=== PATIENT | female | born 1940 | race Caucasian/White ===

== ENCOUNTER 2017-06-21 11:00 | Inpatient (IN) | payer MEDICARE ==
--- NOTE | 2017-06-21 12:29 | RAD ---
Indication: Dementia, fall with head injury and headaches. CT of the brain was performed without IV contrast. Intratesticular structures are midline. No midline shift is noted. Central and cortical atrophy is noted. There is no evidence of mass or hemorrhage. No other high or low density lesions are noted. Mastoid air cells and paranasal sinuses are otherwise unremarkable. IMPRESSION: No intracranial mass or hemorrhage is noted.
--- NOTE | 2017-06-21 12:30 | RAD ---
Clinical injury. 3 views of the right ankle are reviewed. Transverse avulsion of the medial malleolus, spiral fracture of the distal fibula and impacted fracture of the posterior malleolus is noted. This is consistent with a trimalleolar fracture. There appears to be lateral subluxation of the talus. IMPRESSION: Trimalleolar fracture with lateral subluxation of the talus.
[2017-06-21 12:41] LABS: Hematocrit 37 % (35-47); Hemoglobin 12.4 g/dl (12.0-16.0); Mean Corpuscular HGB Conc 33 g/dl (31-36); Mean Corpuscular Hemoglobin 30 pg (27-31); Mean Corpuscular Volume 90 fL (80-97); Mean Platelet Volume 9 um3 (7.4-10.4); Red Blood Count 4.13 10^6/ul (4.0-5.4); Red Cell Distribution Width 13 % (10.5-15); White Blood Count 12.3 10^3/ul (3.5-10.8)
[2017-06-21 12:58] LABS: Albumin 3.3 g/dL (3.2-5.2); BUN/Creatinine Ratio 18.9 (8-20); Calcium 10.4 mg/dL (8.6-10.3); EGFR African American 50.5 (>60); EGFR Non-African American 39.2 (>60); Globulin 3.4 g/dL (2-4); Potassium 4.6 mmol/L (3.5-5.0); Total Bilirubin 0.4 mg/dL (0.2-1.0); Total Protein 6.7 g/dL (6.4-8.9)
[2017-06-21 12:59] LABS: Troponin I 0.01 ng/mL (<0.04)
[2017-06-21 13:26] LABS: TSH (Thyroid Stimulating Horm) 4.98 mcIU/mL (0.34-5.60)
[2017-06-21] MEDS ORDERED: NS 0.9% 1000 ML* 1,000 ML IV ONE (13:51)
[2017-06-21] MEDS ORDERED: Morphine INJ* 2 MG/ML 1 ML CARPUJECT IV ONE (16:09)
[2017-06-21] MEDS ORDERED: Morphine INJ* 2 MG/ML 1 ML SYRINGE (TWO MG - NEW SYRINGE VERSION) ONE (16:11)
--- NOTE | 2017-06-21 17:45 | ED ---
Lani Holden Edward, scribed for Geovanni Vega MD on 06/21/17 at 1147 . Adult Trauma - HPI Summary HPI Summary: 77 y/o female ELIDA c/o immediate onset R ankle pain s/p fall in the shower earlier today. The ankle pain is aggravated by touch. Pt was holding on to the bar in the shower and slowly started falling down. Her feet slipped out from under and hit her R foot on the shower wall. Pt also hit her head on a bench behind her during the fall. Witnessed LOC. Associated sx: abrasions at the back of her head. PMHx dementia. Information provided by the pt's aide. Pt living at [facility] in memory unit. 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 Mechanism of Injury: Fall Loss of Consciousness: brief (seconds) Onset/Duration: Started Hours Ago Onset of Pain: Immediate Location: Extremities - R ankle Associated Signs & Symptoms: Positive: Loss of Consciousness, Other: - Abrasions at back of head - Allergy/Home Medications Allergies/Adverse Reactions: Allergies Allergy/AdvReac Type Severity Reaction Status Date / Time No Known Allergies Allergy Verified 06/21/17 11:35 PMH/Surg Hx/FS Hx/Imm Hx Previously Healthy: No Cardiovascular History: Reports: Hx Hypertension Neurological History: Reports: Hx Dementia - Alzheimer's - Surgical History Surgery Procedure, Year, and Place: Hysterectomy (~3 years ago) Infectious Disease History: Denies: Traveled Outside the [place] in Last 30 Days - Family History Known Family History: Positive: Cardiac Disease - Father - when the pt was 10, Other - Niece - breast CA - Social History Occupation: Retired Lives: Assisted Living - [facility] unit Alcohol Use: None Hx Substance Use: No Substance Use Type: Reports: None Hx Tobacco Use: No Smoking Status (MU): Never Smoked Tobacco Review of Systems Constitutional: Negative Eyes: Negative ENT: Negative Cardiovascular: Negative Respiratory: Negative Gastrointestinal: Negative Genitourinary: Negative Positive: Arthralgia - R ankle pain Skin: Other - Abrasions at the back of the head Neurological: Other - LOC during fall Psychological: Normal All Other Systems Reviewed And Are Negative: Yes Physical Exam Triage Information Reviewed: Yes Vital Signs On Initial Exam: Initial Vitals Temp Pulse Resp BP Pulse Ox 97.7 F 56 16 87/44 97 06/21/17 11:31 06/21/17 11:31 06/21/17 11:31 06/21/17 11:31 06/21/17 11:31 Vital Signs Reviewed: Yes Appearance: Positive: Well-Appearing, No Pain Distress Skin: Positive: Warm, Skin Color Reflects Adequate Perfusion, Dry Head/Face: Positive: Normal Head/Face Inspection Eyes: Positive: Normal ENT: Positive: Normal ENT inspection Neck: Positive: Supple, Nontender Respiratory/Lung Sounds: Positive: Clear to Auscultation, Breath Sounds Present Cardiovascular: Positive: RRR Abdomen Description: Positive: Nontender, Soft Bowel Sounds: Positive: Present Musculoskeletal: Positive: Pain @ - Tender to touch @ R ankle Neurological: Positive: Other - Confused Psychiatric: Positive: Normal, Affect/Mood Appropriate Procedures - Splinting Hand-Made Type: orthoglass Splint: posterior Pre-Proc Neuro Vasc Exam: normal Post-Proc Neuro Vasc Exam: normal Diagnostics - Vital Signs Vital Signs Temp Pulse Resp BP Pulse Ox 06/21/17 15:00 71 13 128/44 94 06/21/17 14:06 12 137/70 06/21/17 14:00 16 06/21/17 13:30 58 15 78/48 95 06/21/17 13:00 56 20 128/65 97 06/21/17 12:30 56 16 114/67 96 06/21/17 12:20 53 15 99 06/21/17 12:18 88/56 06/21/17 11:59 53 15 90 06/21/17 11:32 54 12 93 06/21/17 11:31 97.7 F 56 16 87/44 97 - Laboratory Lab Results: Lab Results 06/21/17 06/21/17 06/21/17 Range/Units 12:25 12:25 12:25 WBC 12.3 H (3.5-10.8) 10^3/ul RBC 4.13 (4.0-5.4) 10^6/ul Hgb 12.4 (12.0-16.0) g/dl Hct 37 (35-47) % MCV 90 (80-97) fL MCH 30 (27-31) pg MCHC 33 (31-36) g/dl RDW 13 (10.5-15) % Plt Count 252 (150-450) 10^3/ul MPV 9 (7.4-10.4) um3 Neut % (Auto) 79.2 (38-83) % Lymph % (Auto) 9.9 L (25-47) % [place] % (Auto) 9.8 H (1-9) % Eos % (Auto) 0.9 (0-6) % Baso % (Auto) 0.2 (0-2) % Absolute Neuts (auto) 9.7 H (1.5-7.7) 10^3/ul Absolute Lymphs (auto) 1.2 (1.0-4.8) 10^3/ul Absolute Monos (auto) 1.2 H (0-0.8) 10^3/ul Absolute Eos (auto) 0.1 (0-0.6) 10^3/ul Absolute Basos (auto) 0 (0-0.2) 10^3/ul Absolute Nucleated RBC 0 10^3/ul Nucleated RBC % 0 Sodium 132 L (133-145) mmol/L Potassium 4.6 (3.5-5.0) mmol/L Chloride 101 (101-111) mmol/L Carbon Dioxide 29 (22-32) mmol/L Anion Gap 2 (2-11) mmol/L BUN 25 H (6-24) mg/dL Creatinine 1.32 H (0.51-0.95) mg/dL Est GFR ( Amer) 50.5 (>60) Est GFR (Non-Af Amer) 39.2 (>60) BUN/Creatinine Ratio 18.9 (8-20) Glucose 101 H (70-100) mg/dL Lactic Acid 1.1 (0.5-2.0) mmol/L Calcium 10.4 H (8.6-10.3) mg/dL Magnesium 2.0 (1.9-2.7) mg/dL Total Bilirubin 0.40 (0.2-1.0) mg/dL AST 17 (13-39) U/L ALT 14 (7-52) U/L Alkaline Phosphatase 94 (34-104) U/L Troponin I 0.01 (<0.04) ng/mL Total Protein 6.7 (6.4-8.9) g/dL Albumin 3.3 (3.2-5.2) g/dL Globulin 3.4 (2-4) g/dL Albumin/Globulin Ratio 1.0 (1-3) TSH 4.98 (0.34-5.60) mcIU/mL Result Diagrams: 06/21/17 12:25 06/21/17 12:25 Lab Statement: Any lab studies that have been ordered have been reviewed, and results considered in the medical decision making process. - Radiology ANKLE XR Xray Interpretation: No Acute Changes - Trimalleolar fracture with lateral subluxation of the talus. ED PHYSICIAN AGREES Radiology Interpretation Completed By: Radiologist - CT BRAIN CT CT Interpretation: No Acute Changes - No intracranial mass or hemorrhage is noted. ED PHYSICIAN AGREES - EKG 1 EKG Rhythm: Sinus Bradycardia - @ 56 BPM EKG Interpretation: 12:48 Re-Evaluation - Re-Evaluation 1 Re-Evaluation Time: 14:37 Adult Trauma Course/Dx - Course Course Of Treatment: Ms. Alfonso had a likely vagal episode in the shower today and sustained a trimalleollar fracture of her right ankle. She is being admitted to the hospitalist with an ortho consult. Assessment/Plan: Discussed with Dr. Puentes @ 15:00 who accepted the patient for admission. - Diagnoses Provider Diagnoses: Syncope and collapse, Trimalleolar fracture of right ankle - Physician Notifications Discussed Care Of Patient With: Sanket Skaggs Time Discussed With Above Provider: 14:44 Discharge - Discharge Plan Condition: Stable Disposition: ADMITTED TO [facility] documentation as recorded by the Lani mac Edward accurately reflects the service I personally performed and the decisions made by Gary delarosa Richard L, MD.
[2017-06-21] MEDS: cefTRIAXone VIAL(*) 1,000 MG in NS 0.9% 50 ML* 50 ML IVPB SCH (17:52)
[2017-06-21] MEDS: NS 0.9% 1000 ML* 1,000 ML IV SCH (17:52)
[2017-06-21] MEDS: Acetaminophen TAB* 325 MG PO SCH ×2 (18:09→23:49)
[2017-06-21] MEDS: Morphine INJ* 2 MG/ML 1 ML SYRINGE (TWO MG - NEW SYRINGE VERSION) IV PRN (19:46)
--- NOTE | 2017-06-21 19:52 | PN ---
Progress Note - Progress Note Date of Service: 06/21/17 Note: Full note dictated. R trimalleolar ankle fracture. The medial skin looks okay. She has already been splinted in the emergency department and is in quite a bit of pain so I left her in that splint but removed the maría bandage to loosen the splint enough to examine her. I have spoken with Dr. Gerard. We will plan for ORIF on Friday. Please make her npo at midnight on Friday night. She is okay to eat tomorrow.
--- NOTE | 2017-06-21 21:52 | CONS ---
CONSULTATION REPORT: DATE OF CONSULTATION: 06/21/17 CHIEF COMPLAINT: Right ankle fracture. HISTORY OF PRESENT ILLNESS: Lacey is a 77-year-old female who has Alzheimer's disease and lives at a care facility here in [facility]. The history if taken from the chart as she has nobody with her today in her room and I cannot get hold of anybody on the phone and so history today is taken here from notes available to me. She had a fall in the shower. She has right ankle pain. X-rays showed a displaced fracture of the right ankle. PAST MEDICAL HISTORY: Include hypertension and Alzheimer's disease that is fairly severe and for which she has full-time care at [facility]. PAST SURGICAL HISTORY: Hysterectomy roughly 3 years ago. FAMILY HISTORY: Noncontributory. SOCIAL HISTORY: She does not smoke. She has never smoked. She lives at [facility] in the Memory Unit given her Alzheimer's disease. REVIEW OF SYSTEMS: Not obtainable given the patient's inability to have a conversation. PHYSICAL EXAMINATION: Awake and responsive. Does not respond to questions appropriately. She is in mild distress. Musculoskeletal: I conducted a full secondary survey. There is no deformity or areas of tenderness anywhere other than right ankle, which is splinted. I removed the Dimas bandage and peeked into the splint. There is no tinting of the skin. The skin on the medial side does not look overly tight. There is just mild swelling. She is wiggling the toes distally. Foot is warm and well perfused. Otherwise, the extremities have reasonable alignment and are moving well. The pelvis is stable. The log roll of the hip is without pain on the left and not performed well due to the ankle fracture on the right. LABORATORY DATA/DIAGNOSTIC STUDIES: Her white count is 12.3, H and H is 12.4 and 37, platelets are 252. Creatinine is 1.32. The rest of her chemistries are unremarkable. Lactic acid is 1.1. Imaging: X-rays of the right ankle show trimalleolar fracture that is subluxated laterally. IMPRESSION: Displaced right trimalleolar ankle fracture. PLAN: I have attempted to reach out to the two people who are listed in the chart, Ania Villalpando who is her medical decision maker, and her brother, Jose Alfonso. I left voice mails on both numbers. I left them my phone number, I will try to get in touch with them. Ultimately, I would plan on treating this operatively as the ankle will do quite poorly without surgical intervention and she does walk at baseline. There is certainly some subluxation of the talus with respect to the plafond but I looked into medial soft tissue and it looks, I guess, not under excessive tension and it gets fine for now. I have spoken to Dr. Gerard. She will get medically cleared and we will plan for surgery Friday. [id number]/[facility] #: [id number] MTDD
--- NOTE | 2017-06-21 22:25 | HP ---
CC: Dr. Karimi* HISTORY AND PHYSICAL: DATE OF ADMISSION: 06/21/17 PRIMARY CARE PROVIDER: Dr. Justyna Karimi. ATTENDING PHYSICIAN: Dr. Liz Kaur *(dictated by Millicent Huerta NP). CHIEF COMPLAINT: Fall over a shower, hit head and right leg pain and swelling. HISTORY OF PRESENT ILLNESS: Ms. Alfonso is a 77-year-old female with past medical history significant for Alzheimer's disease, dementia, glaucoma, depression, constipation, hyperparathyroidism, hypertension and uterine cancer who is a resident at [facility], who presented to the emergency room after losing her footing and falling in the shower, hitting her head. The patient has significant dementia and most of the medical history is obtained from the medical records from [facility] and the niece Kristie Villalpando. There was an aide from the facility with her at that time, but it is unclear whether or not the patient lost consciousness or not. After falling, the patient was complaining of right lower extremity pain and there was noted to be swelling. The patient is unable to give a review of systems due to her dementia , but her niece at bedside states that she has not had any recent complaints. The patient was brought to the emergency room by EMS for evaluation. While in the emergency room, the patient had labs that were remarkable for sodium of 132, BUN 25, creatinine 132, white blood cell count of 12.3. The patient had a brain CT showing no intracranial mass or hemorrhage. She had a right ankle x-ray showing a trimalleolar fracture with lateral subluxation of the talus. Hospitalists were asked to evaluate the patient for admission. PAST MEDICAL HISTORY: 1. Alzheimer's disease. 2. Glaucoma. 3. Depression. 4. Constipation. 5. Dementia. 6. Hyperparathyroidism. 7. Hypertension. 8. Uterine cancer. PAST SURGICAL HISTORY: 1. Status post total hysterectomy in 2013. 2. Status post tonsillectomy as a child. HOME MEDICATIONS: Include: 1. Senna S 8.6/50 one tablet oral daily at bedtime. 2. Vitamin D3 50,000 units oral weekly on Friday. 3. Zoloft 25 mg oral daily. 4. MiraLAX 17 g oral daily on Friday, Friday, and Friday. 5. Lumigan 0.01% one drop to both eyes daily at bedtime. 6. Lisinopril 20 mg oral daily. 7. Aricept 10 mg oral daily at bedtime. 8. Acetaminophen 650 mg oral every 4 hours as needed for fever or pain. 9. Simbrinza ophthalmic solution 1 drop to both eyes twice daily. 10. Namenda 10 mg oral twice daily. 11. Timolol 0.5% ophthalmic solution 1 drop to both eyes twice daily. ALLERGIES: No known drug allergies. FAMILY HISTORY: The patient's father passed in his 50s from myocardial infarction. The patient's mother had a history of type 2 diabetes. The patient has a niece with a history of breast cancer. SOCIAL HISTORY: The patient denied tobacco, alcohol, or recreational drug use. The patient's niece, Kristie Villalpando, will be her surrogate decision maker in the event she is unable to make decisions for herself. Kristie Mcknight can be reached at [phone]. REVIEW OF SYSTEMS: I was unable to perform a review of systems due to the patient's dementia; but according to the patient's niece, she has not had any complaints recently. PHYSICAL EXAMINATION GENERAL: The patient is alert, pleasant and appears to be in no acute distress. VITAL SIGNS: Temperature 97.6, heart rate 59, respiratory rate 20, O2 sat 92% on room air, blood pressure 136/64. HEENT: Normocephalic, atraumatic. Pupils are equal and reactive to light. Extraocular eye movements are intact. RESPIRATORY: There is no accessory muscle use. Lungs are clear to auscultation , bilateral. CARDIOVASCULAR: Regular rate and rhythm. S1 and S2 present. There are no murmurs, rubs, or gallops heard. ABDOMEN: Soft, nontender, and nondistended. There are bowel sounds present x4. EXTREMITIES: DP pulses are 2+ and symmetric bilateral. MUSCULOSKELETAL: There is no clubbing or cyanosis noted. The patient exhibits good strength in all extremities. NEUROLOGICAL: The patient is alert and oriented to person. Cranial nerves II through XII are grossly intact. PSYCHOLOGICAL: The patient is calm and cooperative. SKIN: There are no rashes or abnormalities seen. The patient does have a splint to her right lower extremity. It is clean, dry and intact. DIAGNOSTIC STUDIES/LABORATORY DATA: Sodium 132, potassium 4.6, chloride 101, CO2 29, BUN 25, creatinine 1.32, glucose 101. Calcium 10.4, troponin 0.01. White blood cell count 12.3, hemoglobin 12.4, hematocrit 37 and platelet count 252. EKG shows sinus bradycardia with a rate of 56. There are no acute signs of ischemia noted. There are no previous EKGs for comparison. Brain CT from today. Radiologist impression: No intracranial mass or hemorrhage. Right ankle x-ray from today. Radiologist impression: Trimalleolar fracture with lateral subluxation of talus. IMPRESSION: Ms. Alfonso is a 77-year-old female with past medical history significant for Alzheimer's disease, glaucoma, depression, constipation, hypertension and history of uterine cancer who presents to the emergency room from [facility] where she resides after losing her footing and falling in the shower resulting in a right trimalleolar fracture. She will be admitted as an inpatient for syncope and her right trimalleolar fracture. ASSESSMENT AND PLAN: 1. Syncope. It is unclear whether or not the patient had loss of consciousness with her fall. She had a negative brain CT while in the emergency room. We will monitor her on telemetry and check an echocardiogram in the morning. 2. Right trimalleolar fracture. Dr. Skaggs with Orthopedic Surgery will see the patient tomorrow. For now, we will place her on bedrest as I do not believe that she would be able to get up and follow directions to be nonweightbearing on the extremity. We will give her pain medications. I am going to give her standing Tylenol with the attempt to limit her narcotics to try to prevent delirium while she is here. 3. Urinary tract infection. The patient has leukocytosis. She is currently afebrile. She had a urinalysis sent on June 29. It was positive for an E. coli urinary tract infection. We will check blood cultures. She was not started on antibiotics yet at the [facility]. I will start her on IV ceftriaxone. 4. Elevated acute kidney injury. It appears the patient may have an acute kidney injury I suspect secondary to dehydration, although I do not have baseline labs to compare to. We will give the patient IV hydration overnight and recheck her labs again in the morning. 5. Alzheimer's disease. The patient will be continued on her home Namenda and Aricept. 6. Glaucoma. The patient will be continued on her home eyedrops. 7. Constipation. We will continue the patient on her home bowel regimen of senna and MiraLAX. 8. Hypertension. We will continue the patient on her home lisinopril. If she continues to have signs of an acute kidney injury, we should discontinue this and change it to another agent. 9. Depression. The patient will be continued on her home Zoloft. 10. Fluids, electrolytes and nutrition. The patient will be on a regular diet. 11. Code status. Do not resuscitate/do not intubate. A MOLST has been completed with the nieceKristie, and placed in chart. 12. DVT prophylaxis. The patient is at highest risk and will have subcu heparin and we will place a SCD on her left lower extremity. 13. Disposition. Inpatient. TIME SPENT: Time for this admission was approximately 60 minutes, greater than half of that was spent with the patient and nieceKristie, discussing medications, past medical history, the events leading up to her arrival today and performing a physical examination. The case has been reviewed with the attending, Dr. Kaur, who agrees with the plan of care. MILLICENT HUERTA, MARIANN [id number]/[facility] #: [id number] PAULA
[2017-06-21] MEDS: BRIMONIDINE BOTH EYES SCH (22:34)
[2017-06-21] MEDS: BRINZOLAMIDE BOTH EYES SCH (22:34)
[2017-06-21] MEDS: Timolol 0.5% OPTH.SOL* BTL BOTH EYES SCH (22:40)
[2017-06-21] MEDS: Heparin VIAL(*) 5000 UNITS/ML VIAL (FIVE THOUSAND) SUBCUT SCH (22:40)
[2017-06-21] MEDS: Docusate LIQ* 100 MG/10 ML UDC PO SCH (22:40)
[2017-06-21] MEDS: Latanoprost 0.005%* 2.5 ml BTL BOTH EYES SCH (22:40)
[2017-06-21] MEDS: Senna TAB PO SCH (22:40)
[2017-06-21] MEDS: Memantine TAB* 10 MG PO SCH (22:40)
[2017-06-21] MEDS: Donepezil TAB* 5 MG PO SCH (22:40)
[2017-06-22] MEDS: Morphine INJ* 2 MG/ML 1 ML SYRINGE (TWO MG - NEW SYRINGE VERSION) IV PRN (01:10)
[2017-06-22] MEDS: Haloperidol INJ IV/IM* 5 MG/ML AMP IV SLOW PU PRN ×2 (02:57→19:29)
[2017-06-22] MEDS: Heparin VIAL(*) 5000 UNITS/ML VIAL (FIVE THOUSAND) SUBCUT SCH ×2 (05:01→13:51)
[2017-06-22] MEDS: Acetaminophen TAB* 325 MG PO SCH ×3 (05:01→19:30)
[2017-06-22 06:23] LABS: Hematocrit 36 % (35-47); Hemoglobin 12.1 g/dl (12.0-16.0); Mean Corpuscular HGB Conc 34 g/dl (31-36); Mean Corpuscular Hemoglobin 30 pg (27-31); Mean Corpuscular Volume 90 fL (80-97); Mean Platelet Volume 9 um3 (7.4-10.4); Red Blood Count 4.01 10^6/ul (4.0-5.4); Red Cell Distribution Width 13 % (10.5-15); White Blood Count 9.6 10^3/ul (3.5-10.8)
[2017-06-22 06:38] LABS: BUN/Creatinine Ratio 18.9 (8-20); Calcium 9.9 mg/dL (8.6-10.3); EGFR African American 73.8 (>60); EGFR Non-African American 57.3 (>60); Potassium 4.5 mmol/L (3.5-5.0)
[2017-06-22] MEDS: NS 0.9% 1000 ML* 1,000 ML IV SCH (08:09)
[2017-06-22] MEDS: Memantine TAB* 10 MG PO SCH ×2 (09:20→20:41)
[2017-06-22] MEDS: Sertraline* 25 MG TAB PO SCH (09:20)
[2017-06-22] MEDS: BRIMONIDINE BOTH EYES SCH ×2 (09:21→20:57)
[2017-06-22] MEDS: BRINZOLAMIDE BOTH EYES SCH ×2 (09:21→20:57)
[2017-06-22] MEDS: Timolol 0.5% OPTH.SOL* BTL BOTH EYES SCH ×2 (09:21→20:40)
[2017-06-22] MEDS: Lisinopril TAB* 10 MG PO SCH (10:55)
--- NOTE | 2017-06-22 11:28 | ECHO ---
Patient: CARYN CROOK [facility] Rec#: [id number] : 1940 Date: 06/22/2017 Age: 77y Height: 165.1 cm / 65.0 in Weight: 86.2 kg / 190.0 lbs Sex: F BSA: 1.9 Room#: 437 Admit Date#: 06/21/2017 Type: Inpatient Referring: Nicole Arrieta NP Reading: Meño Husain MD Student Records Specialist: Noemi Hirsch RN RDCS CC: Justyna Karimi MD Transthoracic Echocardiogram Indication: Syncope BP: 132/51 HR: 57 Rhythm: Bradycardia Findings History: Alzheimer's disease, HTN, hyperparathyroidism, uterine cancer Technical Comments: The study quality is fair. The study is technically limited due to patient body habitus. Completed at 1115. Left Ventricle: The left ventricular chamber size is normal. Septal wall hypertrophy is observed.c/w a sigmoid septum. Mild turbulence and mild increase in LVOT velocity without significant obstruction. There is increased basal septal hypertrophy noted without evidence of an increased gradient across the left ventricular outflow tract. Global left ventricular wall motion and contractility are within normal limits. The left ventricle appears hyperdynamic. The estimated ejection fraction is greater than 65%. The assessment of diastolic function is non-diagnostic. The patient was unable to perform a Valsalva maneuver. Left Atrium: The left atrial chamber size is normal. Right Ventricle: The right ventricular chamber size and systolic function are within normal limits. Right Atrium: The right atrial cavity size is normal. Aortic Valve: The aortic valve is trileaflet. The aortic valve leaflets are mildly thickened. There is no evidence of aortic regurgitation. There is no evidence of aortic stenosis. Mitral Valve: There is posterior mitral annular calcification. The mitral valve leaflets are mildly thickened. There is trace to mild mitral regurgitation. There is no evidence of mitral stenosis. Tricuspid Valve: The tricuspid valve leaflets are normal. There is moderate tricuspid regurgitation. There is evidence of mild pulmonary hypertension. There is no tricuspid stenosis. Pulmonic Valve: The pulmonic valve appears normal. There is mild pulmonic regurgitation. Pericardium: There is no significant pericardial effusion. A pericardial fat pad is visualized. Aorta: There is mild dilatation of the ascending aorta. There is no dilatation of the aortic arch. There is no dilation of the aortic root. Pulmonary Artery: The main pulmonary artery appears normal. Venous: The venous system is not well visualized. The inferior vena cava is not visualized. Summary: There was not any prior study for comparison. Conclusions There is increased basal septal hypertrophy noted without evidence of an increased gradient across the left ventricular outflow tract. The estimated ejection fraction is greater than 65%. There is trace to mild mitral regurgitation. There is moderate tricuspid regurgitation. There is evidence of mild pulmonary hypertension. There is mild pulmonic regurgitation. There is mild dilatation of the ascending aorta. Measurements Name Value Normal Range RVDdMajor (2D) 2.8 cm (2.2 - 4.4) RAd ISD 4CH 4 cm (3.4 - 4.9) RA (A4C)W 3 cm (2.9 - 4.6) IVSd (2D) 1.1 cm (0.6 - 1) LVPWd (2D) 1 cm (0.6 - 1) LVIDd (2D) 4.6 cm (3.6 - 5.4) LVIDs (2D) 3.1 cm - LV FS (2D) 31 % (25 - 45) Aortic Annulus 2 cm (1.4 - 2.6) Ao root diameter (2D) 3.2 cm (2.1 - 3.5) Ascending Ao 3.6 cm (2.1 - 3.4) Aortic arch 3 cm (1.8 - 3.4) LA dimension (AP) 2D 3 cm (2.3 - 3.8) LAd ISD 4CH 5 cm (2.9 - 5.3) LA ISD 4CH W 4 cm (2.5 - 4.5) Name Value Normal Range LA ESV SP 4CH (A/L) 49.5 ml - LA ESV SP 2CH (A/L) 72.7 ml - LA ESV BP (A/L) 62.3 ml - LA ESV BP (A/L) index 32.1 ml/m2 - LA ESV SP 4CH (MOD) 48.3 ml - LA ESV SP 2CH (MOD) 69.5 ml - Name Value Normal Range MV E-wave Vmax 0.92 m/sec - MV deceleration time 228 msec - MV A-wave Vmax 0.87 m/sec - MV E:A ratio 1 ratio - P. vein S-wave Vmax 0.71 m/sec - P. vein D-wave Vmax 0.46 m/sec - P. vein S:D Vmax ratio 1.5 ratio - P. vein A-wave duration 152 msec - LV septal e' Vmax 0.08 m/sec - LV lateral e' Vmax 0.1 m/sec - LV E:e' septal ratio 11.5 ratio - LV E:e' lateral ratio 9.2 ratio - Name Value Normal Range AV Vmax 1.6 m/sec - AV VTI 39.6 cm - AV peak gradient 10.2 mmHg - AV mean gradient 5.5 mmHg - LVOT Vmax 1.3 m/sec - LVOT VTI 34 cm - LVOT peak gradient 7.1 mmHg - LVOT mean gradient 3.7 mmHg - BRITANY Vmax 0.46 m/sec - Name Value Normal Range TR Vmax 3 m/sec - TR peak gradient 36 mmHg - RAP 8 mmHg - RVSP 44 mmHg - Name Value Normal Range PV Vmax 0.99 m/sec -
--- NOTE | 2017-06-22 14:15 | PN ---
Progress Note - Progress Note Date of Service: 06/22/17 SOAP: Subjective: Patient has severe dementia and is not oriented. Objective: 77 y/o WDWN F, NAD RLE- splint c/d/i, skin intact with no tenting or skin breakdown, NVI Vital Signs Temp Pulse Resp BP Pulse Ox 97.7 F 66 18 147/49 97 06/22/17 11:16 06/22/17 11:16 06/22/17 11:16 06/22/17 11:16 06/22/17 11:16 Laboratory Results - last 24 hr 06/22/17 06/22/17 06:12 06:12 WBC 9.6 RBC 4.01 Hgb 12.1 Hct 36 MCV 90 MCH 30 MCHC 34 RDW 13 Plt Count 227 MPV 9 Neut % (Auto) 77.5 Lymph % (Auto) 10.3 L [place] % (Auto) 9.8 H Eos % (Auto) 2.2 Baso % (Auto) 0.2 Absolute Neuts (auto) 7.4 Absolute Lymphs (auto) 1.0 Absolute Monos (auto) 0.9 H Absolute Eos (auto) 0.2 Absolute Basos (auto) 0 Absolute Nucleated RBC 0 Nucleated RBC % 0 Sodium 136 Potassium 4.5 Chloride 107 Carbon Dioxide 27 Anion Gap 2 BUN 18 Creatinine 0.95 Est GFR ( Amer) 73.8 Est GFR (Non-Af Amer) 57.3 BUN/Creatinine Ratio 18.9 Glucose 99 Calcium 9.9 Assessment: Right trimalleolar ankle fx Plan: To OR for Right ankle ORIF with Dr. Gerard on 06/23/17 Hold heparin NPO after midnight NWB RLE- keep splint intact hospitalist co-managing
--- NOTE | 2017-06-22 15:53 | PN ---
Subjective Date of Service: 06/22/17 Interval History: No events. She is reported to have occasionally yelled out overnight, but has been redirectable. She denies pain. A complete review of systems is unable to be completed due to advanced dementia. Family History: Unchanged from Admission Social History: Unchanged from Admission Past Medical History: Unchanged from Admission Objective Active Medications: Acetaminophen (Tylenol Tab*) 975 mg PO Q6HR [facility] Last Admin: 06/22/17 11:54 Dose: 975 mg Docusate Sodium (Colace Liq*) 50 mg PO BEDTIME [facility] Last Admin: 06/21/17 22:40 Dose: 50 mg Donepezil HCl (Aricept Tab*) 10 mg PO BEDTIME [facility] Last Admin: 06/21/17 22:40 Dose: 10 mg Haloperidol Lactate (Haldol Inj Iv/Im*) 2.5 mg IV SLOW PU Q6H PRN PRN Reason: AGITATION Last Admin: 06/22/17 02:57 Dose: 2.5 mg Ceftriaxone Sodium 1,000 mg/ (Sodium Chloride) 50 mls @ 200 mls/hr IVPB Q24H [facility] Last Admin: 06/21/17 17:52 Dose: 200 mls/hr Sodium Chloride (Ns 0.9% 1000 Ml*) 1,000 mls @ 75 mls/hr IV PER RATE [facility] Last Admin: 06/22/17 08:09 Dose: 75 mls/hr Latanoprost (Xalatan 0.005%*) 1 drop BOTH EYES BEDTIME [facility] PRN Reason: Protocol Last Admin: 06/21/17 22:40 Dose: 1 drop Lisinopril (Prinivil Tab*) 20 mg PO DAILY [facility] Last Admin: 06/22/17 10:55 Dose: Not Given Memantine (Namenda Tab*) 10 mg PO BID [facility] Last Admin: 06/22/17 09:20 Dose: 10 mg Morphine Sulfate (Morphine Inj (Syringe)*) 2 mg IV Q4H PRN PRN Reason: PAIN - SEVERE Last Admin: 06/22/17 01:10 Dose: 2 mg Pto: Simbrinza Oph. (Susp(Nf)) 1 drop BOTH EYES BID [facility] Last Admin: 06/22/17 09:21 Dose: Not Given Polyethylene Glycol/Electrolytes (Miralax*) 17 gm PO MoWeFr@0900 [facility] Senna (Senokot Tab*) 1 tab PO BEDTIME [facility] Last Admin: 06/21/17 22:40 Dose: 1 tab Sertraline HCl (Zoloft*) 25 mg PO DAILY [facility] Last Admin: 06/22/17 09:20 Dose: 25 mg Timolol Maleate (Timoptic 0.5% Opth*) 1 drop BOTH EYES BID [facility] Last Admin: 06/22/17 09:21 Dose: 1 drop Vital Signs 06/21/17 06/21/17 06/21/17 16:00 16:08 16:14 Temperature 97.6 F 97.6 F Pulse Rate 59 59 Respiratory 20 20 18 Rate Blood Pressure 136/64 136/64 (mmHg) O2 Sat by Pulse 92 92 Oximetry 06/21/17 06/21/17 06/21/17 17:14 19:30 19:46 Temperature 97.4 F Pulse Rate 63 Respiratory 18 17 19 Rate Blood Pressure 134/52 (mmHg) O2 Sat by Pulse 97 Oximetry 06/21/17 06/21/17 06/22/17 20:00 20:46 00:06 Temperature 98.0 F Pulse Rate 94 Respiratory 19 22 16 Rate Blood Pressure 130/58 (mmHg) O2 Sat by Pulse 95 Oximetry 06/22/17 06/22/17 06/22/17 01:10 02:10 04:59 Temperature 97.3 F Pulse Rate 64 Respiratory 20 22 16 Rate Blood Pressure 132/51 (mmHg) O2 Sat by Pulse 96 Oximetry 06/22/17 06/22/17 06/22/17 08:00 08:02 09:20 Temperature 97.9 F Pulse Rate 61 Respiratory 18 18 Rate Blood Pressure 120/38 110/60 (mmHg) O2 Sat by Pulse 94 Oximetry 06/22/17 11:16 Temperature 97.7 F Pulse Rate 66 Respiratory 18 Rate Blood Pressure 147/49 (mmHg) O2 Sat by Pulse 97 Oximetry Oxygen Devices in Use Now: None Appearance: alert, no distress, oriented only to person Eyes: No Scleral Icterus, PERRLA Ears/Nose/Mouth/Throat: NL Teeth, Lips, Gums, Clear Oropharnyx Neck: NL Appearance and Movements; NL JVP, Trachea Midline Respiratory: Symmetrical Chest Expansion and Respiratory Effort, Clear to Auscultation Cardiovascular: NL Sounds; No Murmurs; No JVD, RRR Abdominal: NL Sounds; No Tenderness; No Distention, No Hepatosplenomegaly Lymphatic: No Cervical Adenopathy Extremities: No Edema, - - R ankle splinted Skin: No Rash or Ulcers Neurological: - - poor attention, follows commands, answers questions nonsensibly Result Diagrams: 06/22/17 06:12 06/22/17 06:12 Additional Lab and Data: Lab Results 06/21/17 06/21/17 06/21/17 Range/Units 12:25 12:25 12:25 WBC 12.3 H (3.5-10.8) 10^3/ul RBC 4.13 (4.0-5.4) 10^6/ul Hgb 12.4 (12.0-16.0) g/dl Hct 37 (35-47) % MCV 90 (80-97) fL MCH 30 (27-31) pg MCHC 33 (31-36) g/dl RDW 13 (10.5-15) % Plt Count 252 (150-450) 10^3/ul MPV 9 (7.4-10.4) um3 Neut % (Auto) 79.2 (38-83) % Lymph % (Auto) 9.9 L (25-47) % [place] % (Auto) 9.8 H (1-9) % Eos % (Auto) 0.9 (0-6) % Baso % (Auto) 0.2 (0-2) % Absolute Neuts (auto) 9.7 H (1.5-7.7) 10^3/ul Absolute Lymphs (auto) 1.2 (1.0-4.8) 10^3/ul Absolute Monos (auto) 1.2 H (0-0.8) 10^3/ul Absolute Eos (auto) 0.1 (0-0.6) 10^3/ul Absolute Basos (auto) 0 (0-0.2) 10^3/ul Absolute Nucleated RBC 0 10^3/ul Nucleated RBC % 0 Sodium 132 L (133-145) mmol/L Potassium 4.6 (3.5-5.0) mmol/L Chloride 101 (101-111) mmol/L Carbon Dioxide 29 (22-32) mmol/L Anion Gap 2 (2-11) mmol/L BUN 25 H (6-24) mg/dL Creatinine 1.32 H (0.51-0.95) mg/dL Est GFR ( Amer) 50.5 (>60) Est GFR (Non-Af Amer) 39.2 (>60) BUN/Creatinine Ratio 18.9 (8-20) Glucose 101 H (70-100) mg/dL Lactic Acid 1.1 (0.5-2.0) mmol/L Calcium 10.4 H (8.6-10.3) mg/dL Magnesium 2.0 (1.9-2.7) mg/dL Total Bilirubin 0.40 (0.2-1.0) mg/dL AST 17 (13-39) U/L ALT 14 (7-52) U/L Alkaline Phosphatase 94 (34-104) U/L Troponin I 0.01 (<0.04) ng/mL Total Protein 6.7 (6.4-8.9) g/dL Albumin 3.3 (3.2-5.2) g/dL Globulin 3.4 (2-4) g/dL Albumin/Globulin Ratio 1.0 (1-3) TSH 4.98 (0.34-5.60) mcIU/mL Microbiology and Other Data: Microbiology 06/21/17 15:29 Nasal Screen MRSA (PCR)(AJ) - Final Nasal Mrsa Negative Assess/Plan/Problems-Billing Assessment: 1. R trimalleolar fracture Ortho following; splinted with plan for ORIF tomorrow. RCRI = 0.4% MACE NSQIP = 0.1% MACE Pain is controlled NPO at midnight Will need PT post op 2. Fall--mechanical vs. syncope She does not recall, but it occurred in the shower. No ekg or tele abnormalities to suggest a cardiac etiology TTE without outflow tract obstruction and a normal EF 3. KRISTINE Resolved with IVF, was likely prerenal. Unable to check orthostatic vital signs due to nonweightbearing status and dementia, but may have had orthostatis contributing to her fall in the shower. 4. ? UTI A positive UA was reported, but we have not gotten one here--check UA today 5. Alzheimer's Dementia continue namenda and aricept 6. DVT ppx Lovenox SC
[2017-06-22] MEDS: Enoxaparin(*) 40 MG/0.4 ML SYR SUBCUT SCH (16:51)
[2017-06-22] MEDS: cefTRIAXone VIAL(*) 1,000 MG in NS 0.9% 50 ML* 50 ML IVPB SCH (19:46)
[2017-06-22] MEDS: Ciprofloxacin 400MG IVPREMIX(* 400 MG/200 ML BAG IVPB SCH (20:38)
[2017-06-22] MEDS: Latanoprost 0.005%* 2.5 ml BTL BOTH EYES SCH (20:40)
[2017-06-22] MEDS: Donepezil TAB* 5 MG PO SCH (20:40)
[2017-06-22] MEDS: Docusate LIQ* 100 MG/10 ML UDC PO SCH (20:40)
[2017-06-22] MEDS: Senna TAB PO SCH (20:41)
[2017-06-23] MEDS: Acetaminophen TAB* 325 MG PO SCH ×5 (01:35→23:52)
[2017-06-23] MEDS: Haloperidol INJ IV/IM* 5 MG/ML AMP IV SLOW PU PRN (01:35)
[2017-06-23 06:32] LABS: Hematocrit 31 % (35-47); Hemoglobin 10.4 g/dl (12.0-16.0); Mean Corpuscular HGB Conc 33 g/dl (31-36); Mean Corpuscular Hemoglobin 30 pg (27-31); Mean Corpuscular Volume 90 fL (80-97); Mean Platelet Volume 10 um3 (7.4-10.4); Red Blood Count 3.49 10^6/ul (4.0-5.4); Red Cell Distribution Width 14 % (10.5-15); White Blood Count 7.7 10^3/ul (3.5-10.8)
[2017-06-23 06:47] LABS: BUN/Creatinine Ratio 16.5 (8-20); Calcium 9.4 mg/dL (8.6-10.3); EGFR African American 67.2 (>60); EGFR Non-African American 52.2 (>60); Potassium 4.4 mmol/L (3.5-5.0)
[2017-06-23] MEDS: Morphine INJ* 2 MG/ML 1 ML SYRINGE (TWO MG - NEW SYRINGE VERSION) IV PRN ×2 (06:53→18:19)
--- NOTE | 2017-06-23 08:59 | CONS ---
CONSULTATION REPORT: DATE OF CONSULT: 06/23/17. HISTORY OF PRESENT ILLNESS: Lacey is a pleasant yet demented 77-year-old woman who fell two days ago at the [facility], fracturing the right ankle. This is a closed injury, displaced 20% laterally involving medial and lateral malleolus, small posterior malleolar fracture noted. She was admitted on the evening of the injury to the medical Service as she has multiple medical issues. The plan at this time is operative fixation of the right ankle. PAST MEDICAL HISTORY: Her medical issues include Alzheimer's, glaucoma, depression, dementia, hyperparathyroidism, hypertension, history of uterine cancer. PHYSICAL EXAMINATION: On exam, the patient is lying in the bed. She is awake, alert, but not fully oriented. The ankle foot area is slightly swollen. She has warm toes with intact sensation and she appears to be in minimal distress. IMAGING: The x-rays are described as above. PLAN: The plan will be ORIF, right ankle fracture, today. She is n.p.o. [id number]/[facility] #: [id number] PAULA
[2017-06-23] MEDS ORDERED: Polyethylene Glycol 3350* 17 GM PACKET PO SCH (09:00)
[2017-06-23] MEDS: Timolol 0.5% OPTH.SOL* BTL BOTH EYES SCH ×2 (09:02→20:56)
[2017-06-23] MEDS: Ciprofloxacin 400MG IVPREMIX(* 400 MG/200 ML BAG IVPB SCH (09:02)
[2017-06-23] MEDS: BRIMONIDINE BOTH EYES SCH ×2 (09:05→20:56)
[2017-06-23] MEDS: BRINZOLAMIDE BOTH EYES SCH ×2 (09:05→20:56)
[2017-06-23] MEDS: Memantine TAB* 10 MG PO SCH ×2 (10:42→20:55)
[2017-06-23] MEDS: Sertraline* 25 MG TAB PO SCH (10:42)
[2017-06-23] MEDS: Lisinopril TAB* 10 MG PO SCH (10:42)
[2017-06-23] MEDS ORDERED: Bupivacaine 0.5% SDV PF* 30 ML VIAL ONE (15:11)
[2017-06-23] MEDS ORDERED: ceFAZolin 1 GM in Dextrose (*) 1 GM/50 ML BAG IVPB ONE (15:17)
[2017-06-23] MEDS ORDERED: fentaNYL* 50 MCG/ML 2 ML VIAL (100 MCG VIAL) ONE (15:39)
[2017-06-23] MEDS ORDERED: Ondansetron INJ* 2 MG/ML VIAL IV PRN (15:50)
[2017-06-23] MEDS ORDERED: fentaNYL* 50 MCG/ML 2 ML VIAL (100 MCG VIAL) IV PRN (15:50)
[2017-06-23] MEDS ORDERED: Acetaminophen TAB* 325 MG PO PRN (15:50)
[2017-06-23] MEDS ORDERED: HYDROmorphone INJ* 1 MG/ML CARPUJECT SYRINGE IV PRN (15:50)
[2017-06-23] MEDS ORDERED: Ibuprofen TAB* 600 MG PO PRN (15:50)
[2017-06-23] MEDS ORDERED: Midazolam* 1 MG/ML 2 ML VIAL (2 MG) ONE (16:00)
--- NOTE | 2017-06-23 17:38 | PN ---
Subjective Date of Service: 06/23/17 Interval History: No overnight events. She denies pain but does not know why she is here. When asked a review of systems, she responds with "I don't know." Family History: Unchanged from Admission Social History: Unchanged from Admission Past Medical History: Unchanged from Admission Objective Active Medications: Acetaminophen (Tylenol Tab*) 975 mg PO Q6HR [facility] Last Admin: 06/23/17 12:38 Dose: Not Given Acetaminophen (Tylenol Tab*) 650 mg PO ONCE PRN PRN Reason: PAIN - MILD Stop: 06/23/17 19:30 Ciprofloxacin (Cipro Tab*) 250 mg PO BID [facility] Stop: 06/24/17 11:00 Docusate Sodium (Colace Liq*) 50 mg PO BEDTIME [facility] Last Admin: 06/22/17 20:40 Dose: 50 mg Donepezil HCl (Aricept Tab*) 10 mg PO BEDTIME [facility] Last Admin: 06/22/17 20:40 Dose: 10 mg Enoxaparin Sodium (Lovenox(*)) 40 mg SUBCUT Q24H [facility] Last Admin: 06/22/17 16:51 Dose: Not Given Fentanyl Citrate (Fentanyl*) 10 mcg IV Q5M PRN PRN Reason: PAIN - MODERATE Stop: 06/23/17 19:30 Haloperidol Lactate (Haldol Inj Iv/Im*) 5 mg IV SLOW PU Q6H PRN PRN Reason: AGITATION Last Admin: 06/23/17 01:35 Dose: 5 mg Hydromorphone HCl (Dilaudid Iv*) 0.1 mg IV Q10M PRN PRN Reason: PAIN - SEVERE Stop: 06/23/17 19:30 Sodium Chloride (Ns 0.9% 1000 Ml*) 1,000 mls @ 75 mls/hr IV PER RATE [facility] Last Admin: 06/22/17 08:09 Dose: 75 mls/hr Ibuprofen (Motrin Tab*) 600 mg PO ONCE PRN PRN Reason: PAIN - MILD Stop: 06/23/17 19:30 Latanoprost (Xalatan 0.005%*) 1 drop BOTH EYES BEDTIME [facility] PRN Reason: Protocol Last Admin: 06/22/17 20:40 Dose: 1 drop Lisinopril (Prinivil Tab*) 20 mg PO DAILY [facility] Last Admin: 06/23/17 10:42 Dose: Not Given Memantine (Namenda Tab*) 10 mg PO BID [facility] Last Admin: 06/23/17 10:42 Dose: Not Given Morphine Sulfate (Morphine Inj (Syringe)*) 2 mg IV Q4H PRN PRN Reason: PAIN - SEVERE Last Admin: 06/23/17 06:53 Dose: 2 mg Pto: Simbrinza Oph. (Susp(Nf)) 1 drop BOTH EYES BID [facility] Last Admin: 06/23/17 09:05 Dose: Not Given Ondansetron HCl (Zofran Inj*) 2 mg IV ONCE PRN PRN Reason: NAUSEA/VOMITING Stop: 06/23/17 19:00 Polyethylene Glycol/Electrolytes (Miralax*) 17 gm PO MoWeFr@0900 [facility] Last Admin: 06/23/17 10:42 Dose: Not Given Senna (Senokot Tab*) 1 tab PO BEDTIME [facility] Last Admin: 06/22/17 20:41 Dose: 1 tab Sertraline HCl (Zoloft*) 25 mg PO DAILY [facility] Last Admin: 06/23/17 10:42 Dose: Not Given Timolol Maleate (Timoptic 0.5% Opth*) 1 drop BOTH EYES BID [facility] Last Admin: 06/23/17 09:02 Dose: 1 drop Vital Signs 06/22/17 06/22/17 06/22/17 17:44 19:30 20:25 Temperature 98.5 F 97.7 F Pulse Rate 69 Respiratory 19 16 Rate Blood Pressure 94/80 (mmHg) O2 Sat by Pulse 98 Oximetry 06/22/17 06/22/17 06/23/17 20:32 23:49 04:18 Temperature 98.2 F 98.3 F Pulse Rate 85 92 83 Respiratory 16 16 Rate Blood Pressure 155/58 151/63 142/47 (mmHg) O2 Sat by Pulse 97 95 Oximetry 06/23/17 06/23/17 06/23/17 06:53 07:49 07:50 Temperature 97.7 F Pulse Rate 69 Respiratory 17 20 20 Rate Blood Pressure 139/68 (mmHg) O2 Sat by Pulse 95 Oximetry 06/23/17 06/23/17 06/23/17 07:53 11:29 16:35 Temperature 97.9 F 97.9 F Pulse Rate 63 89 Respiratory 18 16 16 Rate Blood Pressure 160/70 157/76 (mmHg) O2 Sat by Pulse 94 100 Oximetry 06/23/17 06/23/17 06/23/17 16:40 16:45 16:50 Temperature Pulse Rate 89 90 88 Respiratory 17 17 15 Rate Blood Pressure 161/70 161/73 149/54 (mmHg) O2 Sat by Pulse 99 99 99 Oximetry Oxygen Devices in Use Now: None Appearance: Alert, no distress Eyes: No Scleral Icterus, PERRLA Ears/Nose/Mouth/Throat: NL Teeth, Lips, Gums, Clear Oropharnyx Neck: NL Appearance and Movements; NL JVP Respiratory: Symmetrical Chest Expansion and Respiratory Effort, Clear to Auscultation Cardiovascular: NL Sounds; No Murmurs; No JVD, RRR Abdominal: NL Sounds; No Tenderness; No Distention, No Hepatosplenomegaly Lymphatic: No Cervical Adenopathy Extremities: No Edema, - - R leg splinted Skin: No Rash or Ulcers Neurological: - - oriented only to person Result Diagrams: 06/23/17 05:50 06/23/17 05:50 Additional Lab and Data: Lab Results 06/21/17 06/21/17 06/21/17 Range/Units 12:25 12:25 12:25 WBC 12.3 H (3.5-10.8) 10^3/ul RBC 4.13 (4.0-5.4) 10^6/ul Hgb 12.4 (12.0-16.0) g/dl Hct 37 (35-47) % MCV 90 (80-97) fL MCH 30 (27-31) pg MCHC 33 (31-36) g/dl RDW 13 (10.5-15) % Plt Count 252 (150-450) 10^3/ul MPV 9 (7.4-10.4) um3 Neut % (Auto) 79.2 (38-83) % Lymph % (Auto) 9.9 L (25-47) % [place] % (Auto) 9.8 H (1-9) % Eos % (Auto) 0.9 (0-6) % Baso % (Auto) 0.2 (0-2) % Absolute Neuts (auto) 9.7 H (1.5-7.7) 10^3/ul Absolute Lymphs (auto) 1.2 (1.0-4.8) 10^3/ul Absolute Monos (auto) 1.2 H (0-0.8) 10^3/ul Absolute Eos (auto) 0.1 (0-0.6) 10^3/ul Absolute Basos (auto) 0 (0-0.2) 10^3/ul Absolute Nucleated RBC 0 10^3/ul Nucleated RBC % 0 Sodium 132 L (133-145) mmol/L Potassium 4.6 (3.5-5.0) mmol/L Chloride 101 (101-111) mmol/L Carbon Dioxide 29 (22-32) mmol/L Anion Gap 2 (2-11) mmol/L BUN 25 H (6-24) mg/dL Creatinine 1.32 H (0.51-0.95) mg/dL Est GFR ( Amer) 50.5 (>60) Est GFR (Non-Af Amer) 39.2 (>60) BUN/Creatinine Ratio 18.9 (8-20) Glucose 101 H (70-100) mg/dL Lactic Acid 1.1 (0.5-2.0) mmol/L Calcium 10.4 H (8.6-10.3) mg/dL Magnesium 2.0 (1.9-2.7) mg/dL Total Bilirubin 0.40 (0.2-1.0) mg/dL AST 17 (13-39) U/L ALT 14 (7-52) U/L Alkaline Phosphatase 94 (34-104) U/L Troponin I 0.01 (<0.04) ng/mL Total Protein 6.7 (6.4-8.9) g/dL Albumin 3.3 (3.2-5.2) g/dL Globulin 3.4 (2-4) g/dL Albumin/Globulin Ratio 1.0 (1-3) TSH 4.98 (0.34-5.60) mcIU/mL Microbiology and Other Data: Microbiology 06/21/17 15:29 Nasal Screen MRSA (PCR)(AJ) - Final Nasal Mrsa Negative Assess/Plan/Problems-Billing Assessment: 1. R trimalleolar fracture Ortho following; in OR for ORIF now. RCRI = 0.4% MACE NSQIP = 0.1% MACE Pain is controlled Will need PT post op; rehabilitation potential may be limited by her dementia. 2. Fall--mechanical vs. syncope She does not recall, but it occurred in the shower. No ekg or tele abnormalities to suggest a cardiac etiology TTE without outflow tract obstruction and a normal EF 3. KRISTINE Resolved with IVF, was likely prerenal. Unable to check orthostatic vital signs due to nonweightbearing status and dementia, but may have had orthostatis contributing to her fall in the shower. 4. Uncomplicated UTI A positive UA was reported at [facility] that had not yet been treated. Today is day 2 of 3 of ciprofloxacin. 5. Alzheimer's Dementia continue namenda and aricept 6. DVT ppx Lovenox SC
[2017-06-23] MEDS ORDERED: oxyCODONE TAB* 5 MG TAB PO PRN (17:52)
[2017-06-23] MEDS: Enoxaparin(*) 40 MG/0.4 ML SYR SUBCUT SCH (17:54)
--- NOTE | 2017-06-23 20:29 | RAD ---
INDICATION: Right ankle ORIF, right ankle trauma and fracture COMPARISONS: None relevant TECHNIQUE: Fluoroscopy was provided for a surgical procedure. Total fluoroscopy time is: 2.1 seconds FINDINGS: Spot images demonstrate internal fixation of the ankle. IMPRESSION: FLUOROSCOPY WAS PROVIDED FOR A SURGICAL PROCEDURE CPT II Codes: 6045F
[2017-06-23] MEDS: NS 0.9% 1000 ML* 1,000 ML IV SCH (20:49)
[2017-06-23] MEDS: Docusate LIQ* 100 MG/10 ML UDC PO SCH (20:54)
[2017-06-23] MEDS: Donepezil TAB* 5 MG PO SCH (20:54)
[2017-06-23] MEDS: Ciprofloxacin TAB* 250 MG PO SCH (20:55)
[2017-06-23] MEDS: Senna TAB PO SCH (20:55)
[2017-06-23] MEDS: Latanoprost 0.005%* 2.5 ml BTL BOTH EYES SCH (20:56)
[2017-06-23] MEDS: ceFAZolin 1 GM* X 3 DOSES POST-OP Q8H IVPB SCH ×2 (23:51)
[2017-06-24] MEDS: Haloperidol INJ IV/IM* 5 MG/ML AMP IV SLOW PU PRN (01:17)
[2017-06-24] MEDS: Acetaminophen TAB* 325 MG PO SCH ×3 (05:43→17:19)
[2017-06-24 06:48] LABS: BUN/Creatinine Ratio 14.8 (8-20); Blood Urea Nitrogen 13 mg/dL (6-24); CO2 Carbon Dioxide 20 mmol/L (22-32); Calcium 9.3 mg/dL (8.6-10.3); Chloride 108 mmol/L (101-111); EGFR African American 80.6 (>60); EGFR Non-African American 62.6 (>60); Glucose 109 mg/dL (70-100); Sodium 132 mmol/L (133-145)
--- NOTE | 2017-06-24 08:07 | PN ---
Progress Note - Progress Note Date of Service: 06/24/17 SOAP: Subjective: resting comfortably with minimal complaints of pain Objective: Vital Signs Temp Pulse Resp BP Pulse Ox 97.5 F 65 16 149/61 100 06/24/17 03:30 06/24/17 03:30 06/24/17 07:13 06/24/17 03:30 06/24/17 03:30 Laboratory Last Values WBC 7.7 10^3/ul (3.5-10.8) 06/23/17 05:50 RBC 3.49 10^6/ul (4.0-5.4) L 06/23/17 05:50 Hgb 10.4 g/dl (12.0-16.0) L 06/23/17 05:50 Hct 31 % (35-47) L 06/23/17 05:50 MCV 90 fL (80-97) 06/23/17 05:50 MCH 30 pg (27-31) 06/23/17 05:50 MCHC 33 g/dl (31-36) 06/23/17 05:50 RDW 14 % (10.5-15) 06/23/17 05:50 Plt Count 201 10^3/ul (150-450) 06/23/17 05:50 MPV 10 um3 (7.4-10.4) 06/23/17 05:50 Neut % (Auto) 68.9 % (38-83) 06/23/17 05:50 Lymph % (Auto) 16.1 % (25-47) L 06/23/17 05:50 [place] % (Auto) 11.9 % (1-9) H 06/23/17 05:50 Eos % (Auto) 2.6 % (0-6) 06/23/17 05:50 Baso % (Auto) 0.5 % (0-2) 06/23/17 05:50 Absolute Neuts (auto) 5.3 10^3/ul (1.5-7.7) 06/23/17 05:50 Absolute Lymphs (auto) 1.2 10^3/ul (1.0-4.8) 06/23/17 05:50 Absolute Monos (auto) 0.9 10^3/ul (0-0.8) H 06/23/17 05:50 Absolute Eos (auto) 0.2 10^3/ul (0-0.6) 06/23/17 05:50 Absolute Basos (auto) 0 10^3/ul (0-0.2) 06/23/17 05:50 Absolute Nucleated RBC 0 10^3/ul 06/23/17 05:50 Nucleated RBC % 0 06/23/17 05:50 INR (Anticoag Therapy) 0.96 (0.89-1.11) 06/23/17 05:50 Sodium 132 mmol/L (133-145) L 06/24/17 06:04 Potassium 4.4 mmol/L (3.5-5.0) 06/23/17 05:50 Chloride 108 mmol/L (101-111) 06/24/17 06:04 Carbon Dioxide 20 mmol/L (22-32) L 06/24/17 06:04 Anion Gap 2 mmol/L (2-11) 06/23/17 05:50 BUN 13 mg/dL (6-24) 06/24/17 06:04 Creatinine 0.88 mg/dL (0.51-0.95) 06/24/17 06:04 Est GFR ( Amer) 80.6 (>60) 06/24/17 06:04 Est GFR (Non-Af Amer) 62.6 (>60) 06/24/17 06:04 BUN/Creatinine Ratio 14.8 (8-20) 06/24/17 06:04 Glucose 109 mg/dL (70-100) H 06/24/17 06:04 Lactic Acid 1.1 mmol/L (0.5-2.0) 06/21/17 12:25 Calcium 9.3 mg/dL (8.6-10.3) 06/24/17 06:04 Magnesium 2.0 mg/dL (1.9-2.7) 06/21/17 12:25 Total Bilirubin 0.40 mg/dL (0.2-1.0) 06/21/17 12:25 AST 17 U/L (13-39) 06/21/17 12:25 ALT 14 U/L (7-52) 06/21/17 12:25 Alkaline Phosphatase 94 U/L (34-104) 06/21/17 12:25 Troponin I 0.01 ng/mL (<0.04) 06/21/17 12:25 Total Protein 6.7 g/dL (6.4-8.9) 06/21/17 12:25 Albumin 3.3 g/dL (3.2-5.2) 06/21/17 12:25 Globulin 3.4 g/dL (2-4) 06/21/17 12:25 Albumin/Globulin Ratio 1.0 (1-3) 06/21/17 12:25 TSH 4.98 mcIU/mL (0.34-5.60) 06/21/17 12:25 incision: c/d; splint intact PE: able to move all toes, intact sensation over toes Assessment: s/p ORIF right ankle; POD #1 Plan: 1) hospitalist co-managing 2) Lovenox/ SCD's for DVT prophylaxis 3) Ancef for 24 hours post-op 4) PT/OT
[2017-06-24] MEDS: ceFAZolin 1 GM* X 3 DOSES POST-OP Q8H IVPB SCH ×4 (08:31→15:22)
[2017-06-24] MEDS: Timolol 0.5% OPTH.SOL* BTL BOTH EYES SCH ×2 (08:32→21:39)
[2017-06-24] MEDS: Sertraline* 25 MG TAB PO SCH (08:32)
[2017-06-24] MEDS: Ciprofloxacin TAB* 250 MG PO SCH ×2 (08:32→21:33)
[2017-06-24] MEDS: BRIMONIDINE BOTH EYES SCH ×2 (08:33→21:40)
[2017-06-24] MEDS: Lisinopril TAB* 10 MG PO SCH (08:33)
[2017-06-24] MEDS: Memantine TAB* 10 MG PO SCH ×2 (08:33→21:22)
[2017-06-24] MEDS: BRINZOLAMIDE BOTH EYES SCH ×2 (08:33→21:40)
[2017-06-24 09:47] LABS: Anion Gap 4 mmol/L (2-11)
[2017-06-24] MEDS: Polyethylene Glycol 3350* 17 GM PACKET PO PRN (10:14)
[2017-06-24 10:46] LABS: Hematocrit 37 % (35-47); Hemoglobin 12.4 g/dl (12.0-16.0); Mean Corpuscular HGB Conc 34 g/dl (31-36); Mean Corpuscular Hemoglobin 30 pg (27-31); Mean Corpuscular Volume 90 fL (80-97); Mean Platelet Volume 9 um3 (7.4-10.4); Red Blood Count 4.09 10^6/ul (4.0-5.4); Red Cell Distribution Width 14 % (10.5-15); White Blood Count 8.9 10^3/ul (3.5-10.8)
--- NOTE | 2017-06-24 10:52 | OP ---
DATE OF OPERATION: 06/23/17 - ROOM #437 DATE OF : 44 ATTENDING SURGEON: Sanket Gerard MD BLOCK MAKING MACHINE OPERATOR: Linda Byers PA-C. ANESTHESIOLOGIST: Tracie Limon MD ANESTHESIA: General PRE-OP DIAGNOSIS: Right displaced bimalleolar ankle fracture. POST-OP DIAGNOSIS: Right displaced bimalleolar ankle fracture. OPERATIVE PROCEDURE: Open reduction internal fixation, right bimalleolar ankle fracture. DESCRIPTION OF PROCEDURE: The patient was taken to the operating room where a longitudinal incision was made over the distal fibula. She had quite osteopenic bone, which made lag screw fixation of the distal fibular oblique fracture difficult. We bridged this with a 7-hole one-third tubular plate firing screws from posterolateral to anteromedial and several across the tibiofibular joint. This gave good fixation to the plate and pulled the bones back into neutral position. Through a 3-cm longitudinal medial incision, a 4-0 cannulated screw was placed to hold the medial malleolus in a neutral position. This had reasonable fixation with a washer. Both mediolateral wounds were then irrigated and closed with Vicryl, and yareli for the skin, and a compression dressing and plaster splint applied. [id number]/[facility] #: [id number] PAULA
--- NOTE | 2017-06-24 11:39 | PN ---
Subjective Date of Service: 06/24/17 Interval History: Alert, sitting up in bed eating breakfast. She has no complaints. She answers all ROS questions with "I don't know." She cannot tell me why she is in the hospital or what procedure she had yesterday. Family History: Unchanged from Admission Social History: Unchanged from Admission Past Medical History: Unchanged from Admission Objective Active Medications: Acetaminophen (Tylenol Tab*) 975 mg PO Q6HR [facility] Last Admin: 06/24/17 05:43 Dose: Not Given Docusate Sodium (Colace Liq*) 50 mg PO BEDTIME [facility] Last Admin: 06/23/17 20:54 Dose: 50 mg Donepezil HCl (Aricept Tab*) 10 mg PO BEDTIME [facility] Last Admin: 06/23/17 20:54 Dose: 10 mg Enoxaparin Sodium (Lovenox(*)) 40 mg SUBCUT Q24H [facility] Last Admin: 06/23/17 17:54 Dose: 40 mg Haloperidol Lactate (Haldol Inj Iv/Im*) 5 mg IV SLOW PU Q6H PRN PRN Reason: AGITATION Last Admin: 06/24/17 01:17 Dose: 5 mg Sodium Chloride (Ns 0.9% 1000 Ml*) 1,000 mls @ 75 mls/hr IV PER RATE [facility] Last Admin: 06/23/17 20:49 Dose: 75 mls/hr Cefazolin Sodium 1 gm/ Sodium (Chloride) 50 mls @ 200 mls/hr IVPB Q8H [facility] Last Admin: 06/24/17 08:31 Dose: 200 mls/hr Latanoprost (Xalatan 0.005%*) 1 drop BOTH EYES BEDTIME [facility] PRN Reason: Protocol Last Admin: 06/23/17 20:56 Dose: 1 drop Lisinopril (Prinivil Tab*) 20 mg PO DAILY [facility] Last Admin: 06/24/17 08:33 Dose: 20 mg Memantine (Namenda Tab*) 10 mg PO BID [facility] Last Admin: 06/24/17 08:33 Dose: 10 mg Morphine Sulfate (Morphine Inj (Syringe)*) 2 mg IV Q4H PRN PRN Reason: PAIN - SEVERE Last Admin: 06/23/17 18:19 Dose: 2 mg Pto: Simbrinza Oph. (Susp(Nf)) 1 drop BOTH EYES BID [facility] Last Admin: 06/24/17 08:33 Dose: Not Given Oxycodone HCl (Roxycodone Tab*) 5 mg PO Q4H PRN PRN Reason: NOT SPECIFIED Polyethylene Glycol/Electrolytes (Miralax*) 17 gm PO BID PRN PRN Reason: CONSTIPATION Last Admin: 06/24/17 10:14 Dose: 17 gm Senna (Senokot Tab*) 1 tab PO BEDTIME [facility] Last Admin: 06/23/17 20:55 Dose: 1 tab Sertraline HCl (Zoloft*) 25 mg PO DAILY [facility] Last Admin: 06/24/17 08:32 Dose: 25 mg Timolol Maleate (Timoptic 0.5% Opth*) 1 drop BOTH EYES BID [facility] Last Admin: 06/24/17 08:32 Dose: 1 drop Vital Signs 06/23/17 06/23/17 06/23/17 16:35 16:40 16:45 Temperature 97.9 F Pulse Rate 89 89 90 Respiratory 16 17 17 Rate Blood Pressure 157/76 161/70 161/73 (mmHg) O2 Sat by Pulse 100 99 99 Oximetry 06/23/17 06/23/17 06/23/17 16:50 17:00 17:15 Temperature Pulse Rate 88 91 89 Respiratory 15 15 16 Rate Blood Pressure 149/54 162/82 164/73 (mmHg) O2 Sat by Pulse 99 99 100 Oximetry 06/23/17 06/23/17 06/23/17 17:33 17:38 17:48 Temperature 97.6 F Pulse Rate 89 88 80 Respiratory 16 Rate Blood Pressure 162/67 162/67 157/88 (mmHg) O2 Sat by Pulse 92 97 97 Oximetry 06/23/17 06/23/17 06/23/17 18:00 18:03 18:19 Temperature Pulse Rate 81 87 Respiratory 16 Rate Blood Pressure 163/74 (mmHg) O2 Sat by Pulse 97 88 Oximetry 06/23/17 06/23/17 06/23/17 19:03 19:10 20:00 Temperature Pulse Rate Respiratory 16 16 Rate Blood Pressure 152/85 (mmHg) O2 Sat by Pulse Oximetry 06/23/17 06/23/17 06/23/17 20:04 20:19 21:03 Temperature 97.5 F Pulse Rate Respiratory Rate Blood Pressure 161/71 172/74 (mmHg) O2 Sat by Pulse Oximetry 06/24/17 06/24/17 06/24/17 00:00 03:30 07:13 Temperature 97.1 F 97.5 F Pulse Rate 73 65 Respiratory 16 16 16 Rate Blood Pressure 144/66 149/61 (mmHg) O2 Sat by Pulse 100 100 Oximetry 06/24/17 06/24/17 07:39 08:00 Temperature 97.5 F Pulse Rate 59 Respiratory 20 Rate Blood Pressure 146/67 (mmHg) O2 Sat by Pulse 100 100 Oximetry Oxygen Devices in Use Now: None Appearance: well appearing, oriented x 0 Eyes: No Scleral Icterus, PERRLA Ears/Nose/Mouth/Throat: NL Teeth, Lips, Gums Neck: NL Appearance and Movements; NL JVP Respiratory: Symmetrical Chest Expansion and Respiratory Effort, Clear to Auscultation Cardiovascular: NL Sounds; No Murmurs; No JVD, RRR Abdominal: NL Sounds; No Tenderness; No Distention, No Hepatosplenomegaly Lymphatic: No Cervical Adenopathy Extremities: No Edema, - - RLE splinted, neurovascularly in tact toes Skin: No Rash or Ulcers Result Diagrams: 06/24/17 10:25 06/24/17 10:25 Additional Lab and Data: Lab Results 06/21/17 06/21/17 06/21/17 Range/Units 12:25 12:25 12:25 WBC 12.3 H (3.5-10.8) 10^3/ul RBC 4.13 (4.0-5.4) 10^6/ul Hgb 12.4 (12.0-16.0) g/dl Hct 37 (35-47) % MCV 90 (80-97) fL MCH 30 (27-31) pg MCHC 33 (31-36) g/dl RDW 13 (10.5-15) % Plt Count 252 (150-450) 10^3/ul MPV 9 (7.4-10.4) um3 Neut % (Auto) 79.2 (38-83) % Lymph % (Auto) 9.9 L (25-47) % Price % (Auto) 9.8 H (1-9) % Eos % (Auto) 0.9 (0-6) % Baso % (Auto) 0.2 (0-2) % Absolute Neuts (auto) 9.7 H (1.5-7.7) 10^3/ul Absolute Lymphs (auto) 1.2 (1.0-4.8) 10^3/ul Absolute Monos (auto) 1.2 H (0-0.8) 10^3/ul Absolute Eos (auto) 0.1 (0-0.6) 10^3/ul Absolute Basos (auto) 0 (0-0.2) 10^3/ul Absolute Nucleated RBC 0 10^3/ul Nucleated RBC % 0 Sodium 132 L (133-145) mmol/L Potassium 4.6 (3.5-5.0) mmol/L Chloride 101 (101-111) mmol/L Carbon Dioxide 29 (22-32) mmol/L Anion Gap 2 (2-11) mmol/L BUN 25 H (6-24) mg/dL Creatinine 1.32 H (0.51-0.95) mg/dL Est GFR ( Amer) 50.5 (>60) Est GFR (Non-Af Amer) 39.2 (>60) BUN/Creatinine Ratio 18.9 (8-20) Glucose 101 H (70-100) mg/dL Lactic Acid 1.1 (0.5-2.0) mmol/L Calcium 10.4 H (8.6-10.3) mg/dL Magnesium 2.0 (1.9-2.7) mg/dL Total Bilirubin 0.40 (0.2-1.0) mg/dL AST 17 (13-39) U/L ALT 14 (7-52) U/L Alkaline Phosphatase 94 (34-104) U/L Troponin I 0.01 (<0.04) ng/mL Total Protein 6.7 (6.4-8.9) g/dL Albumin 3.3 (3.2-5.2) g/dL Globulin 3.4 (2-4) g/dL Albumin/Globulin Ratio 1.0 (1-3) TSH 4.98 (0.34-5.60) mcIU/mL Microbiology and Other Data: Microbiology 06/21/17 15:29 Nasal Screen MRSA (PCR)(AJ) - Final Nasal Mrsa Negative Assess/Plan/Problems-Billing Assessment: 1. POD #1, ORIF of R trimalleolar fracture No pain. Consult PT today for rehab potential. 2. Fall--mechanical vs. syncope She does not recall, but it occurred in the shower. No ekg or tele abnormalities to suggest a cardiac etiology TTE without outflow tract obstruction and a normal EF 3. KRISTINE Resolved with IVF, was likely prerenal. Unable to check orthostatic vital signs due to nonweightbearing status and dementia, but may have had orthostatis contributing to her fall in the shower. 4. Uncomplicated UTI A positive UA was reported at [facility] that had not yet been treated. Today is day 3 of 3 of ciprofloxacin. 5. Alzheimer's Dementia continue namenda and aricept 6. DVT ppx Lovenox SC
[2017-06-24] MEDS: Enoxaparin(*) 40 MG/0.4 ML SYR SUBCUT SCH (15:22)
[2017-06-24] MEDS: Donepezil TAB* 5 MG PO SCH (21:21)
[2017-06-24] MEDS: Senna TAB PO SCH (21:21)
[2017-06-24] MEDS: Docusate LIQ* 100 MG/10 ML UDC PO SCH (21:28)
[2017-06-24] MEDS: Latanoprost 0.005%* 2.5 ml BTL BOTH EYES SCH (21:37)
[2017-06-25] MEDS: Acetaminophen TAB* 325 MG PO SCH ×3 (00:31→12:30)
[2017-06-25 04:49] LABS: Hematocrit 32 % (35-47); Hemoglobin 10.6 g/dl (12.0-16.0); Mean Corpuscular HGB Conc 34 g/dl (31-36); Mean Corpuscular Hemoglobin 30 pg (27-31); Mean Corpuscular Volume 89 fL (80-97); Mean Platelet Volume 9 um3 (7.4-10.4); Red Blood Count 3.52 10^6/ul (4.0-5.4); Red Cell Distribution Width 14 % (10.5-15); White Blood Count 7.9 10^3/ul (3.5-10.8)
[2017-06-25] MEDS: BRINZOLAMIDE BOTH EYES SCH (08:32)
[2017-06-25] MEDS: BRIMONIDINE BOTH EYES SCH (08:32)
[2017-06-25 08:34] VITALS: BP 133/41
[2017-06-25] MEDS: Sertraline* 25 MG TAB PO SCH (08:40)
[2017-06-25] MEDS: Polyethylene Glycol 3350* 17 GM PACKET PO PRN (08:40)
[2017-06-25] MEDS: Memantine TAB* 10 MG PO SCH (08:40)
[2017-06-25] MEDS: Ciprofloxacin TAB* 250 MG PO SCH (08:41)
[2017-06-25] MEDS: Lisinopril TAB* 10 MG PO SCH (08:41)
[2017-06-25] MEDS: Timolol 0.5% OPTH.SOL* BTL BOTH EYES SCH (08:42)
--- NOTE | 2017-06-25 11:20 | PN ---
Progress Note - Progress Note Date of Service: 06/25/17 SOAP: Subjective: Pt sitting comfortably in chair. No complaint of pain. Objective: Splint C/D/I. Wiggles toes, sensation intact Vital Signs: Temp Pulse Resp BP Pulse Ox 99.8 F 65 18 133/41 94 06/25/17 07:26 06/25/17 07:26 06/25/17 08:00 06/25/17 07:26 06/25/17 07:26 Laboratory Last Values WBC 7.9 10^3/ul (3.5-10.8) 06/25/17 04:34 RBC 3.52 10^6/ul (4.0-5.4) L 06/25/17 04:34 Hgb 10.6 g/dl (12.0-16.0) L 06/25/17 04:34 Hct 32 % (35-47) L 06/25/17 04:34 MCV 89 fL (80-97) 06/25/17 04:34 MCH 30 pg (27-31) 06/25/17 04:34 MCHC 34 g/dl (31-36) 06/25/17 04:34 RDW 14 % (10.5-15) 06/25/17 04:34 Plt Count 221 10^3/ul (150-450) 06/25/17 04:34 MPV 9 um3 (7.4-10.4) 06/25/17 04:34 Neut % (Auto) 71.7 % (38-83) 06/25/17 04:34 Lymph % (Auto) 13.2 % (25-47) L 06/25/17 04:34 Rosebud % (Auto) 13.2 % (1-9) H 06/25/17 04:34 Eos % (Auto) 1.5 % (0-6) 06/25/17 04:34 Baso % (Auto) 0.4 % (0-2) 06/25/17 04:34 Absolute Neuts (auto) 5.7 10^3/ul (1.5-7.7) 06/25/17 04:34 Absolute Lymphs (auto) 1.0 10^3/ul (1.0-4.8) 06/25/17 04:34 Absolute Monos (auto) 1.0 10^3/ul (0-0.8) H 06/25/17 04:34 Absolute Eos (auto) 0.1 10^3/ul (0-0.6) 06/25/17 04:34 Absolute Basos (auto) 0 10^3/ul (0-0.2) 06/25/17 04:34 Absolute Nucleated RBC 0.01 10^3/ul 06/25/17 04:34 Nucleated RBC % 0.1 06/25/17 04:34 INR (Anticoag Therapy) 0.96 (0.89-1.11) 06/23/17 05:50 Sodium 132 mmol/L (133-145) L 06/24/17 06:04 Potassium 4.1 mmol/L (3.5-5.0) 06/24/17 10:25 Chloride 108 mmol/L (101-111) 06/24/17 06:04 Carbon Dioxide 20 mmol/L (22-32) L 06/24/17 06:04 Anion Gap 4 mmol/L (2-11) 06/24/17 06:04 BUN 13 mg/dL (6-24) 06/24/17 06:04 Creatinine 0.88 mg/dL (0.51-0.95) 06/24/17 06:04 Est GFR ( Amer) 80.6 (>60) 06/24/17 06:04 Est GFR (Non-Af Amer) 62.6 (>60) 06/24/17 06:04 BUN/Creatinine Ratio 14.8 (8-20) 06/24/17 06:04 Glucose 109 mg/dL (70-100) H 06/24/17 06:04 Lactic Acid 1.1 mmol/L (0.5-2.0) 06/21/17 12:25 Calcium 9.3 mg/dL (8.6-10.3) 06/24/17 06:04 Magnesium 2.0 mg/dL (1.9-2.7) 06/21/17 12:25 Total Bilirubin 0.40 mg/dL (0.2-1.0) 06/21/17 12:25 AST 17 U/L (13-39) 06/21/17 12:25 ALT 14 U/L (7-52) 06/21/17 12:25 Alkaline Phosphatase 94 U/L (34-104) 06/21/17 12:25 Troponin I 0.01 ng/mL (<0.04) 06/21/17 12:25 Total Protein 6.7 g/dL (6.4-8.9) 06/21/17 12:25 Albumin 3.3 g/dL (3.2-5.2) 06/21/17 12:25 Globulin 3.4 g/dL (2-4) 06/21/17 12:25 Albumin/Globulin Ratio 1.0 (1-3) 06/21/17 12:25 TSH 4.98 mcIU/mL (0.34-5.60) 06/21/17 12:25 Assessment: 77yo female s/p right ankle ORIF POD#2 Plan: PT/OT Lovenox/SCDs for DVT prophylaxis Hospitalist co-managing
--- NOTE | 2017-06-25 11:26 | DS ---
DISCHARGE SUMMARY: DATE OF ADMISSION: 06/21/17. DATE OF DISCHARGE: 06/25/17. PRINCIPAL DIAGNOSIS: Right trimalleolar fracture, status post open reduction and internal fixation. SECONDARY DIAGNOSES: 1. Mechanical fall versus syncope. 2. Advanced dementia. 3. Hypertension. 4. Glaucoma. 5. Depression. PHYSICAL EXAMINATION ON DISCHARGE: Temp 99.8, heart rate 70, respiratory rate 18, pulse ox 94% on room air, blood pressure 133/41. General: Alert, well appearing, sitting up in bed, eating breakfast, no distress. HEENT: Moist mucosa. Pupils equal, round, and reactive to light. Neck: No cervical lymphadenopathy. No jugular venous pressure. Chest: Regular rate and rhythm. No murmurs. PMI nondisplaced. Lungs: Clear bilaterally. Abdomen: Soft, nontender, and nondistended. Bowel sounds in 4 quadrants. Extremities: No edema. Right leg casted. Neurovascularly intact in her toes. Left pulses 2+. Neurologic: Oriented x0, unable to follow commands or answer questions. LABORATORY DATA AT DISCHARGE: White blood cells 7.9, hemoglobin 10.6, platelets 221. HOSPITAL COURSE BY PROBLEM: 1. Right trimalleolar fracture. This occurred after a fall in the shower at her [facility]. She went to the operating room on 06/23 with Orthopedic Surgery, and had an open reduction and internal fixation. She is casted and has had no pain since that time. She worked with physical therapy and will be discharged to [facility] for ongoing inpatient rehab. 2. Advanced dementia. She was continued on donepezil at bedtime. Her next of kin is her niece, Kristie Villalpando. Her phone number is [phone]. 3. Hypertension. She was well controlled on her home medications of lisinopril only. 4. UTI. She was found to have UTI during this admission and was treated with 3 days of ciprofloxacin. 5. Glaucoma. Continue timolol drops. 6. Depression. She was continued on Zoloft. 7. Disposition. She is DNR/DNI. Her MOLST was updated at this admission. She is being discharged to [facility]. TIME SPENT: Greater than 40 minutes was spent on this discharge. [id number]/[facility] #: [id number] [facility]
[2017-06-25] MEDS ORDERED: Influenza VAC *QUAD* 2017-18* 0.5 ML SYRINGE IM ONE (13:25)
== END 2017-06-25 14:10 | DRG 493 ==
LOC: ED 11:00 → MEDTELE 15:01
PROVIDERS: ADMIT Internal Medicine; ATTEND Internal Medicine
PROC: 0QSG04Z Reposition Right Tibia with Internal Fixation Device, Open Approach (ICD-10-PCS; 2017-06-23)
PROC: 0QSJ04Z Reposition Right Fibula with Internal Fixation Device, Open Approach (ICD-10-PCS; principal; 2017-06-23 16:00)
DX: S82.851A Displaced trimalleolar fracture of right lower leg, initial encounter for closed fracture (principal); N17.9 Acute kidney failure, unspecified; G30.9 Alzheimer's disease, unspecified; N39.0 Urinary tract infection, site not specified; F02.80 Dementia in other diseases classified elsewhere, unspecified severity, without behavioral disturbance, psychotic disturbance, mood disturbance, and anxiety; R55 Syncope and collapse; K59.00 Constipation, unspecified; W18.30XA Fall on same level, unspecified, initial encounter; F32.9 Major depressive disorder, single episode, unspecified; E21.3 Hyperparathyroidism, unspecified; H40.9 Unspecified glaucoma; I10 Essential (primary) hypertension; Z90.710 Acquired absence of both cervix and uterus; Z80.3 Family history of malignant neoplasm of breast; Z82.49 Family history of ischemic heart disease and other diseases of the circulatory system; Z85.42 Personal history of malignant neoplasm of other parts of uterus; Z83.3 Family history of diabetes mellitus; Y92.002 Bathroom of unspecified non-institutional (private) residence as the place of occurrence of the external cause
CPT/HCPCS: 36415; 70450; 76000; 80048; 80053; 83605; 83735; 84443; 84484; 85025; 85610; 87040; 87641; 90686; 93005; 93306; A9270-GY; C1713; C1776; J0690; J0696; J0744; J1630; J1644; J1650; J2250; J2270; J3010

== ENCOUNTER 2017-06-27 14:24 | Inpatient (IN) | payer MEDICARE ==
[2017-06-27 15:43] LABS: Hematocrit 35 % (35-47); Hemoglobin 11.7 g/dl (12.0-16.0); Mean Corpuscular HGB Conc 34 g/dl (31-36); Mean Corpuscular Hemoglobin 30 pg (27-31); Mean Corpuscular Volume 89 fL (80-97); Mean Platelet Volume 9 um3 (7.4-10.4); Red Blood Count 3.88 10^6/ul (4.0-5.4); Red Cell Distribution Width 14 % (10.5-15)
--- NOTE | 2017-06-27 15:57 | RAD ---
HISTORY: Altered mental status COMPARISONS: June 21, 2017 TECHNIQUE: Multiple contiguous axial CT scans were obtained of the head without intravenous contrast. FINDINGS: HEMORRHAGE/INFARCT: There is no hemorrhage or acute infarct. MASSES/SHIFT: There is no mass or shift. EXTRA-AXIAL SPACES: There are no extra-axial fluid collections. SULCI AND VENTRICLES: There is diffuse and proportional enlargement of the sulci and ventricles. CEREBRUM: There is mild hypoattenuation of the periventricular and subcortical white matter. BRAINSTEM: There are no focal parenchymal abnormalities. CEREBELLUM: There are no focal parenchymal abnormalities. VESSELS: The vessels are grossly normal. PARANASAL SINUSES: The paranasal sinuses are clear. ORBITS: The orbits are unremarkable. BONES AND SOFT TISSUE: No bone or soft tissue abnormalities are noted. OTHER: None IMPRESSION: INVOLUTIONAL CHANGE. NO ACUTE INTRACRANIAL PATHOLOGY.
[2017-06-27 16:02] LABS: ALT 100 U/L (7-52); AST 54 U/L (13-39); Albumin 2.9 g/dL (3.2-5.2); Alkaline Phosphatase 297 U/L (34-104); Anion Gap 4 mmol/L (2-11); BUN/Creatinine Ratio 17.9 (8-20); Blood Urea Nitrogen 15 mg/dL (6-24); CO2 Carbon Dioxide 29 mmol/L (22-32); Calcium 10.5 mg/dL (8.6-10.3); Chloride 102 mmol/L (101-111); EGFR Non-African American 66.1 (>60); Globulin 3.6 g/dL (2-4); Glucose 103 mg/dL (70-100); Potassium 4.3 mmol/L (3.5-5.0); Sodium 135 mmol/L (133-145); Total Protein 6.5 g/dL (6.4-8.9)
--- NOTE | 2017-06-27 16:02 | RAD ---
Indication: Altered mental status. Alzheimer's disease. Comparison: No relevant prior exams available on the [facility] PACS for comparison. Technique: Upright AP 1538 hours Report: Clear lungs and pleural spaces. Negative for pneumothorax. Top normal heart size accounting for portable AP technique. Unremarkable central pulmonary vasculature and mediastinal contours. Unremarkable osseous structures and soft tissue contours accounting for obese body habitus. IMPRESSION: No evidence for acute intrathoracic disease.
[2017-06-27 16:04] LABS: Troponin I 0.01 ng/mL (<0.04)
--- NOTE | 2017-06-27 16:57 | ED ---
Antoine Holden Thomas, scribed for Karen Jones MD on 06/27/17 at 1536 . Altered Mental Status - HPI Summary HPI Summary: The pt is a 77 y/o F with a Hx of dementia who has AMS characterized as decreased responsiveness that began today at 09:45. In the examination room, the patient is not responsive except for brief intervals where wakes up and answers simple questions. The patient lives at [place]. The patients niece, who provides the patients history, is her healthcare proxy. She is ambulatory at baseline. Last night, the patient was extremely quiet, although she was responsive. Six days ago, the patient slipped in the shower and came to the ED. She was diagnosed with a R ankle fracture and a UTI. She had surgery for the R ankle fracture five days ago and she currently wears a brace. She is currently on Lovenox. - History Of Current Complaint Chief Complaint: EDNeurologicalDeficit Stated Complaint: NOT RESPONSIVE Time Seen by Provider: 06/27/17 14:40 Hx Obtained From: Patient, Family/Senior Games Technician - mayuri provides most of the history Onset/Duration: Still Present Timing: Lasting Hours - onset this AM at 09:45 Character: Responsiveness - The patient has decreased responsiveness Aggravating Factor(s): Nothing Alleviating Factor(s): Nothing Associated Signs And Symptoms: Negative: Fever Related History: Similar Episode/Diagnosed As: - Hx of Alzheimer's disease - Allergies/Home Medications Allergies/Adverse Reactions: Allergies Allergy/AdvReac Type Severity Reaction Status Date / Time No Known Allergies Allergy Verified 06/21/17 11:35 PMH/Surg Hx/FS Hx/Imm Hx Previously Healthy: No Cardiovascular History: Reports: Hx Hypertension Sensory History: Denies: Hx Contacts or Glasses, Hx Hearing Aid Opthamlomology History: Denies: Hx Contacts or Glasses Neurological History: Reports: Hx Dementia - Alzheimer's - Cancer History Cancer Type, Location and Year: uterina ca - Surgical History Surgery Procedure, Year, and Place: Hysterectomy (~3 years ago) - related to uterine ca Infectious Disease History: Yes Infectious Disease History: Denies: Traveled Outside the [place] in Last 30 Days - Family History Known Family History: Positive: Cardiac Disease - Father - when the pt was 10, Other - Niece - breast CA - Social History Alcohol Use: None Hx Substance Use: No Substance Use Type: Reports: None Hx Tobacco Use: No Smoking Status (MU): Never Smoked Tobacco Review of Systems Negative: Fever Neurological: Other - Decreased responsiveness All Other Systems Reviewed And Are Negative: Yes Physical Exam Triage Information Reviewed: Yes Vital Signs On Initial Exam: Initial Vitals Temp Pulse Resp BP Pulse Ox 97.7 F 64 14 141/65 97 06/27/17 14:30 06/27/17 14:30 06/27/17 14:30 06/27/17 14:30 06/27/17 14:30 Vital Signs Reviewed: Yes Appearance: Positive: Well-Appearing, No Pain Distress Skin: Positive: Warm, Skin Color Reflects Adequate Perfusion, Dry Eyes: Positive: EOMI, SHIRA ENT: Positive: Pharynx normal, TMs normal Neck: Positive: Supple, Nontender Respiratory/Lung Sounds: Positive: Clear to Auscultation, Breath Sounds Present. Negative: Rales, Rhonchi, Wheezes Cardiovascular: Positive: RRR, Other - No gallop. Negative: Murmur, Rub Abdomen Description: Positive: Nontender, Soft, Other: - No rebound. Negative: Distended, Guarding Bowel Sounds: Positive: Present Musculoskeletal: Positive: Strength/ROM Intact, Other - Her right leg is in a splint. Negative: Edema Left, Edema Right Neurological: Positive: Sensory/Motor Intact, CN Intact II-III Psychiatric: Positive: Other - She is sleepy but answers questions when woken. Diagnostics - Vital Signs Vital Signs Temp Pulse Resp BP Pulse Ox 06/27/17 14:30 97.7 F 64 14 141/65 97 - Laboratory Lab Results: Lab Results 06/27/17 06/27/17 06/27/17 Range/Units 15:35 15:35 15:35 WBC 8.0 (3.5-10.8) 10^3/ul RBC 3.88 L (4.0-5.4) 10^6/ul Hgb 11.7 L (12.0-16.0) g/dl Hct 35 (35-47) % MCV 89 (80-97) fL MCH 30 (27-31) pg MCHC 34 (31-36) g/dl RDW 14 (10.5-15) % Plt Count 312 (150-450) 10^3/ul MPV 9 (7.4-10.4) um3 Neut % (Auto) 73.2 (38-83) % Lymph % (Auto) 14.0 L (25-47) % Wilson % (Auto) 10.8 H (1-9) % Eos % (Auto) 1.6 (0-6) % Baso % (Auto) 0.4 (0-2) % Absolute Neuts (auto) 5.9 (1.5-7.7) 10^3/ul Absolute Lymphs (auto) 1.1 (1.0-4.8) 10^3/ul Absolute Monos (auto) 0.9 H (0-0.8) 10^3/ul Absolute Eos (auto) 0.1 (0-0.6) 10^3/ul Absolute Basos (auto) 0 (0-0.2) 10^3/ul Absolute Nucleated RBC 0 10^3/ul Nucleated RBC % 0 Sodium 135 (133-145) mmol/L Potassium 4.3 (3.5-5.0) mmol/L Chloride 102 (101-111) mmol/L Carbon Dioxide 29 (22-32) mmol/L Anion Gap 4 (2-11) mmol/L BUN 15 (6-24) mg/dL Creatinine 0.84 (0.51-0.95) mg/dL Est GFR ( Amer) 85.0 (>60) Est GFR (Non-Af Amer) 66.1 (>60) BUN/Creatinine Ratio 17.9 (8-20) Glucose 103 H (70-100) mg/dL Lactic Acid 0.9 (0.5-2.0) mmol/L Calcium 10.5 H (8.6-10.3) mg/dL Total Bilirubin 0.50 (0.2-1.0) mg/dL AST 54 H (13-39) U/L ALT 100 H (7-52) U/L Alkaline Phosphatase 297 H (34-104) U/L Troponin I 0.01 (<0.04) ng/mL Total Protein 6.5 (6.4-8.9) g/dL Albumin 2.9 L (3.2-5.2) g/dL Globulin 3.6 (2-4) g/dL Albumin/Globulin Ratio 0.8 L (1-3) Result Diagrams: 06/27/17 15:35 06/27/17 15:35 Lab Statement: Any lab studies that have been ordered have been reviewed, and results considered in the medical decision making process. - EKG 14:44 Cardiac Rate: NL - 57 BPM EKG Interpretation: Normal EKG. Altered Mental Statu Course/Dx - Course Course Of Treatment: 77 yo female s/p [facility] with [facility]s [facility]. She is somewhat somnolent on exam. Case has been discussed with the hospitalist for admission, catheterized urine and an u/s of the gall bladder are pending as patients liver enzymes are elevated - Diagnoses Discharge Diagnoses: Altered mental status - Provider Notifications Discussed Care Of Patient With: Robert Sifuentes Time Discussed With Above Provider: 16:34 Instructed by Provider To: Other - I consulted with Dr. Sifuentes, hospitalist, who admits the patient to [facility]. Discharge - Discharge Plan Condition: Fair Disposition: ADMITTED TO [facility] Referrals: Justyna Karimi MD [Primary Care Provider] - The documentation as recorded by the Antoine mac Thomas accurately reflects the service I personally performed and the decisions made by me, Karen Jones MD.
[2017-06-27 17:23] LABS: Urine Bacteria Absent (Absent); Urine Bilirubin Negative (Negative); Urine Glucose Negative (Negative); Urine Nitrite Negative (Negative)
--- NOTE | 2017-06-27 18:43 | RAD ---
HISTORY: Unresponsive patient with elevated LFTs COMPARISONS: None TECHNIQUE: Multiple transverse and longitudinal ultrasound images were obtained of the right upper quadrant. FINDINGS: LIVER: The right lobe of the liver there is an avascular hypoechoic focus measuring up to 1 cm. In the left lobe there is a hyperechoic focus measuring up to 2.1 cm. Otherwise the liver is normal in dimensions and echogenicity. Normal hepatic and portal venous blood flow is duplicated with color flow imaging. There is no gross intrahepatic biliary duct dilatation. GALLBLADDER AND EXTRAHEPATIC BILIARY DUCT: The gallbladder is normal in appearance without intraluminal stones or other soft tissue masses. There is no pericholecystic fluid or gallbladder wall thickening. The common bile duct measures a maximum diameter of 3 mm. PANCREAS: The portions of the pancreas not obscured by bowel gas are normal in appearance. RIGHT KIDNEY: The right kidney is normal in size, morphology and echogenicity. AORTA AND IVC: The visualized portions are normal in appearance and not pathologically dilated. IMPRESSION: LIKELY HEMANGIOMAS IDENTIFIED IN THE LIVER IN THIS OTHERWISE NORMAL RIGHT UPPER QUADRANT ULTRASOUND. CONFIRMATION CAN BE ACQUIRED WITH FOLLOW-UP ULTRASOUND IN 3-6 MONTHS.
--- NOTE | 2017-06-27 19:32 | HP ---
HISTORY AND PHYSICAL: DATE OF ADMISSION: 06/27/17 PRIMARY CARE PROVIDER: Justyna Karimi MD CHIEF COMPLAINT: Altered mental status. HISTORY OF PRESENT ILLNESS: Ms. Alfonso is a 77-year-old female with past medical history significant for depression, Alzheimer disease, and recent triple malleolar fracture of right side, who was recently discharged from hospital on 06/25/17 with disposition to [facility]. Patient was noted to be quite somnolent upon arrival to facility and there is some question about whether or not she may have received morphine prior to transfer, last recorded confirmed morphine at this time is 2 days prior, 06/23/17, on the night of her surgery of open reduction and internal fixation of the right ankle. The patient's history is provided by her medical surrogate, her niece, Kristie Villalpando and her [id number], Jenae, who had been following the patient at [facility]. They attest that the patient was never really interactive the first day of discharge, Friday, but did become more alert and interactive the next morning and was able to interact at her near baseline state. This persisted until they left or last saw the patient around 3:30 the day prior to admission. She then seemingly deteriorated again and on day of admission morning, was again very hard to stay awake with interact on occasion, although on other occasions not respond to very loud noises next to her. There was some concern that the patient may have fallen as aides at [facility] discussed in front of family that they found her on the floor on , day prior to this admission. Patient apparently had a somewhat restless night the night prior, but was very quiet night prior to admission. Patient was notably treated with ciprofloxacin for 3 days for an E. coli UTI during the last admission. On evaluation here in emergency room, patient's vital signs were stable, blood pressure 141/65, temperature 97.7 Fahrenheit, pulse rate 64, respiratory rate 14 , satting well on 97% on room air. Laboratory evaluations were notable for anemia with a hemoglobin of 11.7, no elevated white count at 8.0, transaminitis , elevations of AST 54, ALT 100, and alk phosphatase 297. Lactic acid was normal at 0.9, creatinine is 0.84. Sodium 135, potassium 4.3, chloride 102, carbon dioxide 29, BUN 15, glucose 103, total bilirubin was normal at 0.50. Urinalysis obtained after a straight catheterization was significant for 1+ protein and presence of squamous epithelial cells, leukocyte esterase, nitrites and bacteria and trace wbc's. Chest x-ray did not show any evidence of acute intrathoracic abnormality. CT of the head noncontrast showed no acute intracranial pathology, hemorrhage or mass or shift. No acute infarction. ED has ordered a right upper quadrant ultrasound to evaluate for her elevated transaminitis. PAST MEDICAL HISTORY: Alzheimer disease, glaucoma, depression, constipation, dementia, hypertension, hyperparathyroidism, recent right triple malleolar fracture. PAST SURGICAL HISTORY: Total hysterectomy in 2014, tonsillectomy age 11. HOME MEDICATIONS: Include: 1. Memantine 10 mg b.i.d. 2. Donepezil 10 mg p.o. bedtime. 3. Lisinopril 20 mg daily. 4. Sertraline 25 mg daily. 5. Timolol 0.5% ophthalmic solution 1 drop both eyes b.i.d. 6. Simbrinza 1 drop both eyes b.i.d. 7. Acetaminophen 650 mg q.4 hours p.r.n. 8. Cholecalciferol 5000 units p.o. weekly. 9. MiraLAX 17 g daily. 10. Sennosides, docusate sodium 1 tablet p.o. bedtime. ALLERGIES: No known drug allergies. FAMILY HISTORY: Father of heart attack in his 50s. Mother had type 2 diabetes. SOCIAL HISTORY: No history of tobacco, alcohol or drug use. Kristie Villalpando is her surrogate decision maker and could be reached at [phone]. PHYSICAL EXAMINATION GENERAL: The patient is arousable to voice and stimulation, but will quickly return to sleep. She does follow commands, is verbal, oriented only to person and does recognize her niece and [id number]. VITAL SIGNS: As above. HEENT: Normocephalic, atraumatic. Pupils are equal and reactive to light. Extraocular motions are intact. RESPIRATORY: Lungs are clear to auscultation with no wheezing, rales or rhonchi in both lung álvarez. CARDIOVASCULAR: Regular rate and rhythm. S1 and S2 normal. No murmurs, rubs or gallops. ABDOMEN: Soft, nontender, nondistended. No rebound, no guarding. No Gold sign present. EXTREMITIES: Warm, well perfused. No peripheral edema. Right leg in cast. NEUROLOGIC: Alert and oriented times person only. Recognizes family members. Cranial nerves II through XII intact. Moves all extremities. Follows commands. SKIN: No rashes. DIAGNOSTIC DATA: EKG: Sinus bradycardia, rate 57. No ST depressions or elevations. No T-wave inversions. Normal axis, intervals normal. ASSESSMENT AND PLAN: Lacey Alfonso is a 77-year-old female with history of severe dementia, who has undergone many medical interventions over the last week including open reduction and internal fixation of right triple malleolar facture and treatment for urinary tract infection with 3 days of levofloxacin. Patient is arousable, does follow commands but seems to be sleepier than her baseline and undoubtedly may have an influence by opioid medications during previous hospital stay or antibiotic fluoroquinolone in addition to her baseline dementia and new surroundings for the last week. She is likely sundowning. UA is not significant for evidence of infection, chest x-ray likewise, vital signs are stable. The patient will be observed overnight and placed on fall and aspiration precautions. Her home medications will be continued, although only given if she is more alert than in her present state. We will follow up the right upper quadrant ultrasound and check a urine toxicology as well as a Tylenol level in addition to an INR to evaluate for potential Tylenol overdose as the potential cause of her transaminitis. CMP will be rechecked in the morning. Her eventual disposition is to [facility] for acute rehabilitation as her surrogate decision maker, Kristie Villalpando, does not wish to return to [facility] and the fact that may not even be an option. She also cannot return to the previous living situation given the lack of acute rehab. For dementia, Aricept and Namenda will be continued. Her history of constipation will be treated with polyethylene glycol. Her depression, she will be continued with sertraline 25 mg daily. She will be placed on DVT prophylaxis with heparin 5000 units t.i.d. Her diet will be regular diet, but with aspiration precautions. She is a DNR/DNI as confirmed with her niece. [id number]/[facility] #: [id number] [facility] HOSPITALAubrey
[2017-06-27] MEDS ORDERED: NS 0.9% 1000 ML* 1,000 ML IV SCH (19:45)
[2017-06-27] MEDS: Brinzolamid/Brimonidin OPH(NF) 1 DROP BTL BOTH EYES SCH (20:00)
[2017-06-27] MEDS: Latanoprost 0.005%* 2.5 ml BTL BOTH EYES SCH (20:12)
[2017-06-27] MEDS: Timolol 0.5% OPTH.SOL* BTL BOTH EYES SCH (20:13)
[2017-06-27 20:48] LABS: Acetaminophen < 15 mcg/mL
[2017-06-28 06:39] LABS: Hematocrit 35 % (35-47); Hemoglobin 11.6 g/dl (12.0-16.0); Mean Corpuscular HGB Conc 34 g/dl (31-36); Mean Corpuscular Hemoglobin 30 pg (27-31); Mean Corpuscular Volume 89 fL (80-97); Mean Platelet Volume 9 um3 (7.4-10.4); Red Blood Count 3.88 10^6/ul (4.0-5.4); Red Cell Distribution Width 13 % (10.5-15)
[2017-06-28 06:46] LABS: Albumin 2.6 g/dL (3.2-5.2); BUN/Creatinine Ratio 21.1 (8-20); Calcium 9.9 mg/dL (8.6-10.3); EGFR African American 95.4 (>60); EGFR Non-African American 74.2 (>60); Globulin 3.2 g/dL (2-4); Total Bilirubin 0.5 mg/dL (0.2-1.0); Total Protein 5.8 g/dL (6.4-8.9)
[2017-06-28 07:46] LABS: Potassium 4.4 mmol/L (3.5-5.0)
[2017-06-28] MEDS: Sertraline* 25 MG TAB PO SCH (10:16)
[2017-06-28] MEDS: Lisinopril TAB* 10 MG PO SCH (10:16)
[2017-06-28] MEDS: Brinzolamid/Brimonidin OPH(NF) 1 DROP BTL BOTH EYES SCH ×2 (10:26→21:10)
[2017-06-28] MEDS: Timolol 0.5% OPTH.SOL* BTL BOTH EYES SCH ×2 (10:26→21:10)
--- NOTE | 2017-06-28 16:56 | PN ---
Subjective Date of Service: 06/28/17 Interval History: Pt able to eat some apple sauce and drink from straw. A bit more alert today, will hold eyes open for extended period of time and is likely close to baseline which is not oriented to place or time but recognizes family Objective Active Medications: Brinzolamide/Brimonidine Tartrate (Simbrinza Oph.Susp(Nf)) 1 drop BOTH EYES BID [facility] Last Admin: 06/28/17 10:26 Dose: Not Given Donepezil HCl (Aricept Tab*) 10 mg PO BEDTIME [facility] Latanoprost (Xalatan 0.005%*) 1 drop BOTH EYES BEDTIME [facility] PRN Reason: Protocol Last Admin: 06/27/17 20:12 Dose: 1 drop Lisinopril (Prinivil Tab*) 20 mg PO DAILY [facility] Last Admin: 06/28/17 10:16 Dose: 20 mg Memantine (Namenda Tab*) 10 mg PO BID [facility] Polyethylene Glycol/Electrolytes (Miralax*) 17 gm PO MoWeFr@0900 [facility] Sertraline HCl (Zoloft*) 25 mg PO DAILY [facility] Last Admin: 06/28/17 10:16 Dose: 25 mg Timolol Maleate (Timoptic 0.5% Opth*) 1 drop BOTH EYES BID [facility] Last Admin: 06/28/17 10:26 Dose: 1 drop Vital Signs 06/27/17 06/27/17 06/27/17 18:10 18:40 20:21 Temperature 97.3 F Pulse Rate 59 69 Respiratory 19 Rate Blood Pressure 155/68 152/60 (mmHg) O2 Sat by Pulse 95 98 Oximetry 06/28/17 06/28/17 06/28/17 00:00 00:08 03:44 Temperature 97.9 F 98.1 F 97.3 F Pulse Rate 72 75 57 Respiratory 22 16 17 Rate Blood Pressure 145/59 124/82 141/57 (mmHg) O2 Sat by Pulse 96 99 98 Oximetry 06/28/17 06/28/17 06/28/17 06:40 08:00 15:51 Temperature 97.6 F 98.8 F Pulse Rate 62 71 Respiratory 17 17 24 Rate Blood Pressure 145/70 124/64 (mmHg) O2 Sat by Pulse 96 96 Oximetry Result Diagrams: 06/28/17 06:16 06/28/17 06:16 Additional Lab and Data: Lab Results 06/27/17 06/27/17 06/27/17 Range/Units 15:35 15:35 15:35 WBC 8.0 (3.5-10.8) 10^3/ul RBC 3.88 L (4.0-5.4) 10^6/ul Hgb 11.7 L (12.0-16.0) g/dl Hct 35 (35-47) % MCV 89 (80-97) fL MCH 30 (27-31) pg MCHC 34 (31-36) g/dl RDW 14 (10.5-15) % Plt Count 312 (150-450) 10^3/ul MPV 9 (7.4-10.4) um3 Neut % (Auto) 73.2 (38-83) % Lymph % (Auto) 14.0 L (25-47) % Wilkinson % (Auto) 10.8 H (1-9) % Eos % (Auto) 1.6 (0-6) % Baso % (Auto) 0.4 (0-2) % Absolute Neuts (auto) 5.9 (1.5-7.7) 10^3/ul Absolute Lymphs (auto) 1.1 (1.0-4.8) 10^3/ul Absolute Monos (auto) 0.9 H (0-0.8) 10^3/ul Absolute Eos (auto) 0.1 (0-0.6) 10^3/ul Absolute Basos (auto) 0 (0-0.2) 10^3/ul Absolute Nucleated RBC 0 10^3/ul Nucleated RBC % 0 Sodium 135 (133-145) mmol/L Potassium 4.3 (3.5-5.0) mmol/L Chloride 102 (101-111) mmol/L Carbon Dioxide 29 (22-32) mmol/L Anion Gap 4 (2-11) mmol/L BUN 15 (6-24) mg/dL Creatinine 0.84 (0.51-0.95) mg/dL Est GFR ( Amer) 85.0 (>60) Est GFR (Non-Af Amer) 66.1 (>60) BUN/Creatinine Ratio 17.9 (8-20) Glucose 103 H (70-100) mg/dL Lactic Acid 0.9 (0.5-2.0) mmol/L Calcium 10.5 H (8.6-10.3) mg/dL Total Bilirubin 0.50 (0.2-1.0) mg/dL AST 54 H (13-39) U/L ALT 100 H (7-52) U/L Alkaline Phosphatase 297 H (34-104) U/L Troponin I 0.01 (<0.04) ng/mL Total Protein 6.5 (6.4-8.9) g/dL Albumin 2.9 L (3.2-5.2) g/dL Globulin 3.6 (2-4) g/dL Albumin/Globulin Ratio 0.8 L (1-3) Assess/Plan/Problems-Billing Assessment:
--- NOTE | 2017-06-28 19:12 | PN ---
Subjective Date of Service: 06/28/17 Interval History: Pt able to eat some apple sauce and drink from straw. A bit more alert today, will hold eyes open for extended period of time and is likely close to baseline (which is not oriented to place or time but recognizes family). Unable to discharge to [place] today (CM called and the person they talked to was not aware ) Objective Active Medications: Brinzolamide/Brimonidine Tartrate (Simbrinza Oph.Susp(Nf)) 1 drop BOTH EYES BID [facility] Last Admin: 06/28/17 10:26 Dose: Not Given Donepezil HCl (Aricept Tab*) 10 mg PO BEDTIME [facility] Latanoprost (Xalatan 0.005%*) 1 drop BOTH EYES BEDTIME [facility] PRN Reason: Protocol Last Admin: 06/27/17 20:12 Dose: 1 drop Lisinopril (Prinivil Tab*) 20 mg PO DAILY [facility] Last Admin: 06/28/17 10:16 Dose: 20 mg Memantine (Namenda Tab*) 10 mg PO BID [facility] Polyethylene Glycol/Electrolytes (Miralax*) 17 gm PO MoWeFr@0900 [facility] Sertraline HCl (Zoloft*) 25 mg PO DAILY [facility] Last Admin: 06/28/17 10:16 Dose: 25 mg Timolol Maleate (Timoptic 0.5% Opth*) 1 drop BOTH EYES BID [facility] Last Admin: 06/28/17 10:26 Dose: 1 drop Vital Signs 06/27/17 06/28/17 06/28/17 20:21 00:00 00:08 Temperature 97.9 F 98.1 F Pulse Rate 72 75 Respiratory 22 16 Rate Blood Pressure 152/60 145/59 124/82 (mmHg) O2 Sat by Pulse 96 99 Oximetry 06/28/17 06/28/17 06/28/17 03:44 06:40 08:00 Temperature 97.3 F 97.6 F Pulse Rate 57 62 Respiratory 17 17 17 Rate Blood Pressure 141/57 145/70 (mmHg) O2 Sat by Pulse 98 96 Oximetry 06/28/17 15:51 Temperature 98.8 F Pulse Rate 71 Respiratory 24 Rate Blood Pressure 124/64 (mmHg) O2 Sat by Pulse 96 Oximetry Oxygen Devices in Use Now: None Appearance: Easily arousable and more alert with sustained attention. No acute distress. Ears/Nose/Mouth/Throat: NL Teeth, Lips, Gums, Mucous Membranes Moist Neck: NL Appearance and Movements; NL JVP Respiratory: Symmetrical Chest Expansion and Respiratory Effort, Clear to Auscultation Cardiovascular: NL Sounds; No Murmurs; No JVD, No Edema Abdominal: NL Sounds; No Tenderness; No Distention Extremities: No Edema, - - right ankle wrapped. Neurological: - - Not oriented to place or time "here". Does not respond to question of name. Follows commands. Moving all extremities. Result Diagrams: 06/28/17 06:16 06/28/17 06:16 Additional Lab and Data: Laboratory Results - last 24 hr 06/27/17 06/27/17 06/28/17 15:35 15:35 06:16 WBC RBC Hgb Hct MCV MCH MCHC RDW Plt Count MPV Neut % (Auto) Lymph % (Auto) Warrick % (Auto) Eos % (Auto) Baso % (Auto) Absolute Neuts (auto) Absolute Lymphs (auto) Absolute Monos (auto) Absolute Eos (auto) Absolute Basos (auto) Absolute Nucleated RBC Nucleated RBC % INR (Anticoag Therapy) 0.93 Sodium 135 Potassium 4.4 Chloride 105 Carbon Dioxide 27 Anion Gap 3 BUN 16 Creatinine 0.76 Est GFR ( Amer) 95.4 Est GFR (Non-Af Amer) 74.2 BUN/Creatinine Ratio 21.1 H Glucose 90 Calcium 9.9 Total Bilirubin 0.50 AST 37 ALT 77 H Alkaline Phosphatase 263 H Total Protein 5.8 L Albumin 2.6 L Globulin 3.2 Albumin/Globulin Ratio 0.8 L Acetaminophen < 15 06/28/17 06:16 WBC 7.0 RBC 3.88 L Hgb 11.6 L Hct 35 MCV 89 MCH 30 MCHC 34 RDW 13 Plt Count 297 MPV 9 Neut % (Auto) 69.3 Lymph % (Auto) 15.8 L Warrick % (Auto) 11.9 H Eos % (Auto) 2.6 Baso % (Auto) 0.4 Absolute Neuts (auto) 4.8 Absolute Lymphs (auto) 1.1 Absolute Monos (auto) 0.8 Absolute Eos (auto) 0.2 Absolute Basos (auto) 0 Absolute Nucleated RBC 0.01 Nucleated RBC % 0.1 INR (Anticoag Therapy) Sodium Potassium Chloride Carbon Dioxide Anion Gap BUN Creatinine Est GFR ( Amer) Est GFR (Non-Af Amer) BUN/Creatinine Ratio Glucose Calcium Total Bilirubin AST ALT Alkaline Phosphatase Total Protein Albumin Globulin Albumin/Globulin Ratio Acetaminophen Assess/Plan/Problems-Billing Assessment: 77 year old female PMH severe dementia, depression, HTN, recent trimalleolor fracture bounce back from [facility] for AMS/sleepiness. Likely 2/2 delerium, medication side-effect, recent levaquin, poor po intake. Recently treated for UTI but no evidence of active infection. More alert 06/28 likely close to baseline. Planned to [place] rehab. - Patient Problems (1) Altered mental status Current Visit: Yes Status: Acute Code(s): R41.82 - ALTERED MENTAL STATUS, UNSPECIFIED SNOMED Code(s): 214847148 Comment: Likely 2/2 stress of hospitalization, surgery with brief opioid pain control, UTI with levaquin tx, new environment in setting of already severe dementia. Likely close to baseline. tolerating more food and more alert. Baseline can recognize family but not to time or place. Stable for discharge to [facility] as soon as can be arranged. Talked to CM and they suggested keeping observation status for now. (2) Hypertension Current Visit: Yes Status: Acute Code(s): I10 - ESSENTIAL (PRIMARY) HYPERTENSION SNOMED Code(s): 47650663 Comment: lisinopril 20mg daily (3) Depression Current Visit: Yes Status: Acute Code(s): F32.9 - MAJOR DEPRESSIVE DISORDER , SINGLE EPISODE, UNSPECIFIED SNOMED Code(s): 14184863 Comment: sertraline 25mg daily (4) Dementia Current Visit: No Status: Acute Code(s): F03.90 - UNSPECIFIED DEMENTIA WITHOUT BEHAVIORAL DISTURBANCE SNOMED Code(s): 74421883 Comment: home namenda and aricept (5) Trimalleolar fracture of right ankle Current Visit: No Status: Acute Code(s): S82.851A - DISPLACED TRIMALLEOLAR FRACTURE OF RIGHT LOWER LEG, INIT SNOMED Code(s): 858291452 Comment: plan to acute rehab at [place]. Family will not accept transfer back to [facility] (and [facility] may not accept patient back per Niece report) Status and Disposition: Observation status (discussed with CM[facility], [facility] Attending: Jose Miguel Zuleta
[2017-06-28] MEDS: Memantine TAB* 10 MG PO SCH (21:07)
[2017-06-28] MEDS: Donepezil TAB* 5 MG PO SCH (21:07)
[2017-06-28] MEDS: Latanoprost 0.005%* 2.5 ml BTL BOTH EYES SCH (21:10)
[2017-06-29 08:56] LABS: Hematocrit 35 % (35-47); Hemoglobin 11.8 g/dl (12.0-16.0); Mean Corpuscular HGB Conc 34 g/dl (31-36); Mean Corpuscular Hemoglobin 30 pg (27-31); Mean Corpuscular Volume 89 fL (80-97); Mean Platelet Volume 8 um3 (7.4-10.4); Red Blood Count 3.95 10^6/ul (4.0-5.4); Red Cell Distribution Width 14 % (10.5-15); White Blood Count 8.4 10^3/ul (3.5-10.8)
[2017-06-29 09:15] LABS: Albumin 2.8 g/dL (3.2-5.2); BUN/Creatinine Ratio 19.3 (8-20); Calcium 9.9 mg/dL (8.6-10.3); EGFR African American 86.2 (>60); Potassium 4.1 mmol/L (3.5-5.0); Total Bilirubin 0.4 mg/dL (0.2-1.0); Total Protein 5.8 g/dL (6.4-8.9)
--- NOTE | 2017-06-29 09:33 | PN ---
Subjective Date of Service: 06/29/17 Interval History: Patient seen and examined at bedside. Patient found trying to move self in bed and trying to remove RLE splint. Patient redirected and repositioned in bed with nursing assistance. She is alert, oriented to 0. She smiles and states yes to every question but does not appear to be in distress. Family History: Unchanged from Admission Social History: Unchanged from Admission Past Medical History: Unchanged from Admission Objective Active Medications: Brinzolamide/Brimonidine Tartrate (Simbrinza Oph.Susp(Nf)) 1 drop BOTH EYES BID [facility] Last Admin: 06/28/17 21:10 Dose: Not Given Donepezil HCl (Aricept Tab*) 10 mg PO BEDTIME [facility] Last Admin: 06/28/17 21:07 Dose: 10 mg Latanoprost (Xalatan 0.005%*) 1 drop BOTH EYES BEDTIME [facility] PRN Reason: Protocol Last Admin: 06/28/17 21:10 Dose: 1 drop Lisinopril (Prinivil Tab*) 20 mg PO DAILY [facility] Last Admin: 06/28/17 10:16 Dose: 20 mg Memantine (Namenda Tab*) 10 mg PO BID [facility] Last Admin: 06/28/17 21:07 Dose: 10 mg Polyethylene Glycol/Electrolytes (Miralax*) 17 gm PO MoWeFr@0900 [facility] Sertraline HCl (Zoloft*) 25 mg PO DAILY [facility] Last Admin: 06/28/17 10:16 Dose: 25 mg Timolol Maleate (Timoptic 0.5% Opth*) 1 drop BOTH EYES BID [facility] Last Admin: 06/28/17 21:10 Dose: 1 drop Vital Signs 06/28/17 06/28/17 06/28/17 15:51 20:08 23:27 Temperature 98.8 F 98.9 F 97.9 F Pulse Rate 71 76 71 Respiratory 24 20 12 Rate Blood Pressure 124/64 127/44 140/68 (mmHg) O2 Sat by Pulse 96 97 95 Oximetry Oxygen Devices in Use Now: None Appearance: Elderly female, lying in bed, fidgeting but in no apparent distress , alert. Eyes: No Scleral Icterus Ears/Nose/Mouth/Throat: Clear Oropharnyx, Mucous Membranes Moist Neck: NL Appearance and Movements; NL JVP Respiratory: Symmetrical Chest Expansion and Respiratory Effort, Clear to Auscultation Cardiovascular: NL Sounds; No Murmurs; No JVD, RRR Abdominal: NL Sounds; No Tenderness; No Distention Extremities: No Clubbing, Cyanosis, - - RLE splint in place, distally nvi Skin: No Rash or Ulcers Neurological: - - Alert, oriented x 0, does not respond appropriately, inconsistently follows commands Nutrition: Taking PO's Result Diagrams: 06/29/17 08:45 06/29/17 08:44 Additional Lab and Data: Laboratory Results - last 24 hr 06/27/17 06/27/17 06/28/17 15:35 15:35 06:16 WBC RBC Hgb Hct MCV MCH MCHC RDW Plt Count MPV Neut % (Auto) Lymph % (Auto) Lane % (Auto) Eos % (Auto) Baso % (Auto) Absolute Neuts (auto) Absolute Lymphs (auto) Absolute Monos (auto) Absolute Eos (auto) Absolute Basos (auto) Absolute Nucleated RBC Nucleated RBC % INR (Anticoag Therapy) 0.93 Sodium 135 Potassium 4.4 Chloride 105 Carbon Dioxide 27 Anion Gap 3 BUN 16 Creatinine 0.76 Est GFR ( Amer) 95.4 Est GFR (Non-Af Amer) 74.2 BUN/Creatinine Ratio 21.1 H Glucose 90 Calcium 9.9 Total Bilirubin 0.50 AST 37 ALT 77 H Alkaline Phosphatase 263 H Total Protein 5.8 L Albumin 2.6 L Globulin 3.2 Albumin/Globulin Ratio 0.8 L Acetaminophen < 15 06/28/17 06:16 WBC 7.0 RBC 3.88 L Hgb 11.6 L Hct 35 MCV 89 MCH 30 MCHC 34 RDW 13 Plt Count 297 MPV 9 Neut % (Auto) 69.3 Lymph % (Auto) 15.[address] % (Auto) 11.9 H Eos % (Auto) 2.6 Baso % (Auto) 0.4 Absolute Neuts (auto) 4.8 Absolute Lymphs (auto) 1.1 Absolute Monos (auto) 0.8 Absolute Eos (auto) 0.2 Absolute Basos (auto) 0 Absolute Nucleated RBC 0.01 Nucleated RBC % 0.1 INR (Anticoag Therapy) Sodium Potassium Chloride Carbon Dioxide Anion Gap BUN Creatinine Est GFR ( Amer) Est GFR (Non-Af Amer) BUN/Creatinine Ratio Glucose Calcium Total Bilirubin AST ALT Alkaline Phosphatase Total Protein Albumin Globulin Albumin/Globulin Ratio Acetaminophen Assess/Plan/Problems-Billing Assessment: 77 year old female PMH severe dementia, depression, HTN, recent trimalleolor fracture bounce back from [facility] for AMS/sleepiness. Likely 2/2 delerium, medication side-effect, recent levaquin, poor po intake. Recently treated for UTI but no evidence of active infection. More alert 06/28 likely close to baseline. Plan for discharge to [place] re[facility]. - Patient Problems (1) Altered mental status Code(s): R41.82 - ALTERED MENTAL STATUS, UNSPECIFIED Comment: Likely 2/2 stress of hospitalization, surgery w/ brief opioid pain control, UTI w/ Levaquin tx, new environment in setting of already severe dementia. Likely close to baseline. Tolerating more food and more alert. At baseline can recognize family but not oriented to time or place. Stable for discharge to [facility] as soon as can be arranged. (2) Trimalleolar fracture of right ankle Code(s): S82.851A - DISPLACED TRIMALLEOLAR FRACTURE OF RIGHT LOWER LEG, INIT Comment: Stable, s/p ORIF Continue outpatient f/u with ortho - will need follow-up in the upcoming week. Plan for acute rehab at [facility]. Family will not accept transfer back to [facility], and [facility] will not accept patient back. (3) Depression Code(s): F32.9 - MAJOR DEPRESSIVE DISORDER, SINGLE EPISODE, UNSPECIFIED Comment: Continue sertraline 25mg daily. (4) Hypertension Code(s): I10 - ESSENTIAL (PRIMARY) HYPERTENSION Comment: Controlled Continue lisinopril 20mg daily. (5) Dementia Code(s): F03.90 - UNSPECIFIED DEMENTIA WITHOUT BEHAVIORAL DISTURBANCE Comment : Continue home Namenda and Aricept. (6) DVT prophylaxis Comment: SQ Lovenox Status and Disposition: Observation status (discussed with CM), plan for d/c to [facility] for rehab. Family already got bed offer, anticipate dc on 06/30.
[2017-06-29] MEDS: Lisinopril TAB* 10 MG PO SCH (10:26)
[2017-06-29] MEDS: Memantine TAB* 10 MG PO SCH ×2 (10:26→21:03)
[2017-06-29] MEDS: Sertraline* 25 MG TAB PO SCH (10:26)
[2017-06-29] MEDS: Brinzolamid/Brimonidin OPH(NF) 1 DROP BTL BOTH EYES SCH ×2 (10:26→21:25)
[2017-06-29] MEDS: Timolol 0.5% OPTH.SOL* BTL BOTH EYES SCH ×2 (10:26→21:04)
[2017-06-29] MEDS ORDERED: Enoxaparin(*) 40 MG/0.4 ML SYR SUBCUT SCH (13:00)
[2017-06-29] MEDS: Latanoprost 0.005%* 2.5 ml BTL BOTH EYES SCH (21:04)
[2017-06-29] MEDS: Donepezil TAB* 5 MG PO SCH (21:04)
--- NOTE | 2017-06-30 03:32 | TRS ---
CC: Dr. Justyna Karimi* TRANSFER SUMMARY: DATE OF ADMISSION: 06/27/17 ANTICIPATED DATE OF TRANSFER: 06/30/17 PROVIDER: Joie Hernandez NP ATTENDING PHYSICIAN: Dr. Jah Kim* (as dictated by Joie Hernandez NP) PRIMARY CARE PROVIDER: Dr. Justyna Karimi. PRIMARY DISCHARGE DIAGNOSIS: Altered mental status, suspect secondary to delirium and medication. SECONDARY DISCHARGE DIAGNOSES: 1. Hypertension. 2. Depression. 3. Dementia. 4. Trimalleolar fracture of the right ankle, status post surgical correction on 06/23/17. HOME MEDICATIONS: At discharge: 1. Senna-S 8.6/50 one tab at bedtime. 2. MiraLAX 17 g daily p.r.n. 3. Memantine 10 mg b.i.d. 4. Omeprazole 10 mg at bedtime. 5. Cholecalciferol 92151 units weekly. 6. Bimatoprost 0.01% drops 1 drop to both eyes at bedtime. 7. Acetaminophen 650 mg q.4 hours p.r.n. 8. Timolol 0.5% ophthalmic solution 1 drop to both eyes b.i.d. 9. Simbrinza 1 drop to both eyes b.i.d. 10. Sertraline 25 mg daily. 11. Lisinopril 20 mg daily. HOSPITAL COURSE OF STAY: For full details, please refer to the H and P provided by Dr. Zuleta on admission. In summary, this is a 77-year-old female with a history of severe dementia. He was transferred to [facility] on for acute rehab. The patient was noted to be rather somnolent at the facility and there was concern for decreased interaction and deterioration at [facility]. The patient was previously treated for UTI during her last admission. The family wished to transfer the patient from [facility] to [facility] and had to arrange for transfer; however, the patient was very lethargic and would not eat or open her eyes on the day of transfer on . She was subsequently brought back to the ER for further evaluation and admitted. During her time here, she has improved and appears to be closer to her baseline. Family feels that the patient looks more like her usual self and would like her to be transferred to [facility]. They have already received a bed offer and plan to transfer her on 06/30/17. The patient has been in stable condition, is tolerating p.o. intake and is at baseline. She will need to follow up with Orthopedic Surgery sometime this week for reevaluation of the extremity and recasting. CONCERNS AT DISCHARGE: Ms. Alfonso will be discharged to [facility] for rehab on 06/30/17. She will need a followup appointment that can be scheduled by her nursing facility with Orthopedic Surgery. She will need to be seen within the next 7 days. DIET: Regular diet. ACTIVITY: As tolerated. CONDITION: Improved, stable. DISPOSITION: To [facility] for subacute rehab. TIME SPENT: Time spent on this discharge and summary preparation was approximately 35 minutes. Again, this is only a brief summary of the patient's hospital course of stay. For full details, please refer to the full medical record. If there are any other questions or need further assistance concerns, please feel free to contact me at [phone]. JOIE HERNANDEZ NP [id number]/[facility] #: [id number] PAULA
[2017-06-30 06:40] LABS: Hematocrit 33 % (35-47); Hemoglobin 11.4 g/dl (12.0-16.0); Mean Corpuscular HGB Conc 34 g/dl (31-36); Mean Corpuscular Hemoglobin 30 pg (27-31); Mean Corpuscular Volume 89 fL (80-97); Mean Platelet Volume 9 um3 (7.4-10.4); Red Blood Count 3.76 10^6/ul (4.0-5.4); Red Cell Distribution Width 14 % (10.5-15); White Blood Count 7.2 10^3/ul (3.5-10.8)
[2017-06-30 08:48] VITALS: BP 145/59
[2017-06-30] MEDS ORDERED: Polyethylene Glycol 3350* 17 GM PACKET PO SCH (09:00)
[2017-06-30] MEDS: Brinzolamid/Brimonidin OPH(NF) 1 DROP BTL BOTH EYES SCH (09:42)
[2017-06-30] MEDS: Timolol 0.5% OPTH.SOL* BTL BOTH EYES SCH (09:52)
[2017-06-30] MEDS: Sertraline* 25 MG TAB PO SCH (09:52)
[2017-06-30] MEDS: Lisinopril TAB* 10 MG PO SCH (09:52)
[2017-06-30] MEDS: Memantine TAB* 10 MG PO SCH (09:52)
--- NOTE | 2017-06-30 10:16 | PN ---
Subjective Date of Service: 06/30/17 Interval History: Patient seen and examined at bedside. Pt is resting in bed with eyes closed upon arrival to bedside, Pt opened eyes to voice. Pt answered yes or no to most questions. Denied pain, fever, chills, shortness of breath, chest discomfort, N/ V/D. Family History: Unchanged from Admission Social History: Unchanged from Admission Past Medical History: Unchanged from Admission Objective Active Medications: Brinzolamide/Brimonidine Tartrate (Simbrinza Oph.Susp(Nf)) 1 drop BOTH EYES BID TANMAY Donepezil HCl (Aricept Tab*) 10 mg PO BEDTIME TANMAY Enoxaparin Sodium (Lovenox(*)) 40 mg SUBCUT Q24H TANMAY Latanoprost (Xalatan 0.005%*) 1 drop BOTH EYES BEDTIME TANMAY Reason: Protocol Lisinopril (Prinivil Tab*) 20 mg PO DAILY TANMAY Memantine (Namenda Tab*) 10 mg PO BID TANMAY Polyethylene Glycol/Electrolytes (Miralax*) 17 gm PO MoWeFr@0900 TANMAY Sertraline HCl (Zoloft*) 25 mg PO DAILY TANMAY Timolol Maleate (Timoptic 0.5% Opth*) 1 drop BOTH EYES BID TANMAY Vital Signs 06/29/17 06/29/17 06/30/17 15:46 19:57 00:00 Temperature 99.3 F 97.8 F 99.1 F Pulse Rate 70 82 78 Respiratory 18 20 17 Rate Blood Pressure 136/54 150/51 127/103 (mmHg) O2 Sat by Pulse 96 96 95 Oximetry 06/30/17 06/30/17 06/30/17 00:11 03:35 08:23 Temperature 98.5 F 98.0 F Pulse Rate 72 67 64 Respiratory 15 14 Rate Blood Pressure 139/71 146/60 145/59 (mmHg) O2 Sat by Pulse 97 96 Oximetry Oxygen Devices in Use Now: None Appearance: NAD, laying in bed Ears/Nose/Mouth/Throat: Mucous Membranes Moist Respiratory: Symmetrical Chest Expansion and Respiratory Effort, Clear to Auscultation Cardiovascular: NL Sounds; No Murmurs; No JVD, RRR Abdominal: NL Sounds; No Tenderness; No Distention Extremities: No Edema Skin: No Rash or Ulcers, - - Splint and KRISHNA wrap to right LE clean, dry and intact Neurological: - - Alert and Oriented to Self Lines/Tubes/Other Access: Clean, Dry and Intact Peripheral IV - site benign Result Diagrams: 06/30/17 06:11 06/29/17 08:44 Additional Lab and Data: Assess/Plan/Problems-Billing Assessment: Ms. Alfonso is a 77 year old female with PMH severe dementia, depression, HTN, recent trimalleolor fracture bounce back from [facility] for AMS/sleepiness. Likely secondary to delerium, medication side-effect, recent levaquin, poor po intake. Recently treated for UTI but no evidence of active infection. More alert 06/28 likely close to baseline. Plan for discharge to [facility]. - Patient Problems (1) Altered mental status Code(s): R41.82 - ALTERED MENTAL STATUS, UNSPECIFIED SNOMED Code(s): 293886530 Comment: - Suspect likely secondary to stress of hospitalization, surgery w/ brief opioid pain control, UTI w/ Levaquin tx, new environment in setting of already severe dementia. - Now likely close to baseline. At baseline can recognize family but not oriented to time or place. - Tolerating more food and more alert. - Stable for discharge to [facility]. (2) Trimalleolar fracture of right ankle Code(s): S82.851A - DISPLACED TRIMALLEOLAR FRACTURE OF RIGHT LOWER LEG, INIT SNOMED Code(s): 431612286 Comment: - Stable, s/p ORIF - Continue outpatient f/u with ortho - will need follow-up in the upcoming week. - Plan for acute rehab at [facility]. (3) Depression Code(s): F32.9 - MAJOR DEPRESSIVE DISORDER, SINGLE EPISODE, UNSPECIFIED SNOMED Code(s): 66981509 Comment: - Continue sertraline 25mg daily. (4) Hypertension Code(s): I10 - ESSENTIAL (PRIMARY) HYPERTENSION SNOMED Code(s): 03062785 Comment: - Mostly normotensive - Continue lisinopril 20mg daily. (5) Dementia Code(s): F03.90 - UNSPECIFIED DEMENTIA WITHOUT BEHAVIORAL DISTURBANCE SNOMED Code(s): 04579149 Comment: - Continue home Namenda and Aricept. (6) DVT prophylaxis Code(s): IAV1896 - SNOMED Code(s): 437212350 Comment: - SQ Lovenox (7) DNR (do not resuscitate) Status and Disposition: Observation status (discussed with CM), plan for d/c to [facility] for rehab. Family already got bed offer, plan for discharge to [facility] today.
== END 2017-06-30 12:35 | DRG 948 ==
LOC: ED 14:24 → MEDTELE 17:18 → MED 22:45 → OBSVTOIN 06-28 10:00
PROVIDERS: ADMIT Internal Medicine; ATTEND Hospitalist
DX: R41.0 Disorientation, unspecified (principal); G30.9 Alzheimer's disease, unspecified; F05 Delirium due to known physiological condition; I10 Essential (primary) hypertension; F32.9 Major depressive disorder, single episode, unspecified; F02.80 Dementia in other diseases classified elsewhere, unspecified severity, without behavioral disturbance, psychotic disturbance, mood disturbance, and anxiety; S82.851D Displaced trimalleolar fracture of right lower leg, subsequent encounter for closed fracture with routine healing; W19.XXXD Unspecified fall, subsequent encounter; Z66 Do not resuscitate; E21.3 Hyperparathyroidism, unspecified; H40.9 Unspecified glaucoma; K59.00 Constipation, unspecified; Z79.1 Long term (current) use of non-steroidal anti-inflammatories (NSAID); Z79.899 Other long term (current) drug therapy; Z83.3 Family history of diabetes mellitus; Z80.9 Family history of malignant neoplasm, unspecified
CPT/HCPCS: 36415; 70450; 71010; 76705; 80053; 80329; 81003; 81015; 83605; 84484; 85025; 85610; 93005; A9270-GY; G0378; G0480; J1650